=== PATIENT | male | born 1960 | race Two or more races ===

== ENCOUNTER 2017-12-11 06:24 | Inpatient (IN) | payer OTHER ==
[~2017-12-11] VITALS: Ht 182.9 cm; Wt 77.2 kg
[2017-12-11] MEDS ORDERED: PIPERACILLIN/TAZO/PMX 3.375GM 50 ML IVPB ONE (07:00)
[2017-12-11] MEDS ORDERED: VANCOMYCIN PER PHARMACY IV ONE (07:00)
[2017-12-11] MEDS ORDERED: VANCOMYCIN 1,600 MG in SODIUM CHLORIDE 0.9% 250 ML IV ONE (07:30)
[2017-12-11] MEDS ORDERED: PHARMACOKINETIC CONSULTATION MC ONE (07:30)
[2017-12-11] MEDS ORDERED: PIPERACILLIN/TAZO/PMX 3.375GM 50 ML ONE (07:37)
[2017-12-11 07:45] LABS: ALANINE AMINOTRANSFERASE 19 U/L (12-78); ALBUMIN 2.2 g/dL (3.4-5.0); ANION GAP 13 mmol/L (5-15); CALCIUM 8.7 mg/dL (8.5-10.1); CHLORIDE 92 mmol/L (98-107); CREATININE 0.84 mg/dL (0.7-1.3)
[2017-12-11 07:47] LABS: ALKALINE PHOSPHATASE 123 U/L (45-117); BILIRUBIN,TOTAL 0.5 mg/dL (0.2-1.0); TOTAL PROTEIN 8.8 g/dL (6.4-8.2)
[2017-12-11 07:51] LABS: MEAN CORPUSCULAR HEMOGLOBIN 29.2 pg (27.5-34.5); MEAN CORPUSCULAR HGB CONC 33.6 g/dL (33.2-36.2); MEAN CORPUSCULAR VOLUME 87.1 fL (81-97); PLATELET COUNT 280 x10^3/uL (130-400); RED BLOOD COUNT 4.47 x10^6/uL (4.38-5.82); RED CELL DISTRIBUTION WIDTH 13.5 % (9.4-14.8)
[2017-12-11 08:07] LABS: MD YES
[2017-12-11 08:09] LABS: <PLATELET ESTIMATE> ADEQUATE; <PLT MORPHOLOGY> NORMAL PLT MORPH; <RBC MORPHOLOGY> NORMAL; BAND#(MANUAL) 0.54 x10^3/uL; BANDS%(MANUAL) 3 % (0-7); LYMPH#(MANUAL) 1.07 x10^3/uL (1-3.4); LYMPHS% (MANUAL) 6 % (22-44); MONOS% (MANUAL) 5 % (2-9); SEG#(MANUAL) 15.39 x10^3/uL (1.8-6.8); SEGS% (MANUAL) 86 % (42-75)
[2017-12-11] MEDS ORDERED: DIPH,PERTUSS(ACELL),TET VAC/PF 0.5 ML IM-VACC ONE ×3 (08:30→09:36)
[2017-12-11] MEDS ORDERED: ONDANSETRON 2MG/ML, 2ML IVPush PRN (09:30)
[2017-12-11] MEDS ORDERED: BISACODYL 10 MG SUPP PR PRN (09:30)
[2017-12-11] MEDS: NICOTINE 14MG/24 HR PATCH.TD24 TD SCH (09:30)
[2017-12-11] MEDS ORDERED: VANCOMYCIN PER PHARMACY MC PRN (09:30)
[2017-12-11] MEDS ORDERED: ONDANSETRON ODT 4 MG PO PRN (09:30)
[2017-12-11] MEDS ORDERED: PIPERACILLIN/TAZO/PMX 3.375GM 50 ML IV SCH (09:30)
[2017-12-11 09:59] LABS: INTERNATIONAL NORMALIZED RATIO 1.01 (0.93-1.1); PROTHROMBIN TIME 10.5 Seconds (9.6-11.5)
[2017-12-11 10:11] LABS: HEMOGLOBIN A1C 12.9 % (4.2-6.3)
[2017-12-11] MEDS: SODIUM CHLORIDE 0.9% 1,000 ML IV SCH ×2 (11:26→22:21)
[2017-12-11] MEDS ORDERED: PHARMACOKINETIC MONITORING MC PRN (11:30)
[2017-12-11] MEDS: CLINDAMYCIN PMX 600MG/50ML 50 ML IV SCH ×2 (11:45→17:27)
[2017-12-11] MEDS: PIPERACILLIN/TAZO/PMX 3.375GM 50 ML IV SCH ×2 (13:08→19:09)
[2017-12-11 13:12] VITALS: BP 132/74
[2017-12-11 14:19] VITALS: BP 135/78
[2017-12-11] MEDS: ACETAMINOPHEN 325 MG TABLET PO PRN (14:47)
[2017-12-11] MEDS: INSULIN LISPRO 100 UNITS/ML, PEN SQ-INSULIN SCH ×2 (16:39→22:21)
[2017-12-11 20:21] VITALS: BP 120/70
[2017-12-11] MEDS: morphine SULFATE 10 MG/ML, 1ML IVPush PRN (21:33)
[2017-12-11] MEDS: VANCOMYCIN 1,500 MG in SODIUM CHLORIDE 0.9% 250 ML IV SCH (21:40)
[2017-12-12] MEDS: CLINDAMYCIN PMX 600MG/50ML 50 ML IV SCH ×4 (00:40→18:07)
[2017-12-12 00:51] VITALS: BP 123/71
[2017-12-12] MEDS: PIPERACILLIN/TAZO/PMX 3.375GM 50 ML IV SCH ×4 (02:36→23:30)
[2017-12-12] MEDS: SODIUM CHLORIDE 0.9% 1,000 ML IV SCH (04:00)
[2017-12-12] MEDS: ACETAMINOPHEN 325 MG TABLET PO PRN (04:06)
[2017-12-12 04:22] VITALS: BP 115/72
[2017-12-12 05:37] LABS: MEAN CORPUSCULAR HEMOGLOBIN 30.2 pg (27.5-34.5); MEAN CORPUSCULAR HGB CONC 34.4 g/dL (33.2-36.2); MEAN CORPUSCULAR VOLUME 87.7 fL (81-97); MEAN PLATELET VOLUME 8.8 fL (7.4-10.4); PLATELET COUNT 274 x10^3/uL (130-400); RED BLOOD COUNT 3.81 x10^6/uL (4.38-5.82); RED CELL DISTRIBUTION WIDTH 13.7 % (9.4-14.8)
[2017-12-12 05:52] LABS: CHLORIDE 98 mmol/L (98-107)
[2017-12-12 05:58] LABS: ANION GAP 13 mmol/L (5-15); CALCIUM 7.9 mg/dL (8.5-10.1); CREATININE 0.87 mg/dL (0.7-1.3)
[2017-12-12 06:03] LABS: BASOPHILS # (AUTO) 0.02 x10^3/uL (0-0.1); BASOPHILS % (AUTO) 0 % (0-1); EOSINOPHILS # (AUTO) 0.04 x10^3/uL (0-0.4); EOSINOPHILS % (AUTO) 0 % (1-7); LYMPHOCYTES # (AUTO) 1.11 x10^3/uL (1-3.4); LYMPHOCYTES % (AUTO) 9 % (22-44); MD SCAN; MONOCYTES # (AUTO) 0.95 x10^3/uL (0.2-0.8); MONOCYTES % (AUTO) 7 % (2-9); NEUTROPHILS # (AUTO) 10.82 x10^3/uL (1.8-6.8); NEUTROPHILS % (AUTO) 84 % (42-75)
[2017-12-12 07:11] VITALS: BP 122/71
[2017-12-12] MEDS: INSULIN LISPRO 100 UNITS/ML, PEN SQ-INSULIN SCH ×4 (07:48→22:03)
[2017-12-12] MEDS: morphine SULFATE 10 MG/ML, 1ML IVPush PRN ×3 (08:35→21:43)
[2017-12-12] MEDS: VANCOMYCIN 1,500 MG in SODIUM CHLORIDE 0.9% 250 ML IV SCH ×2 (08:35→21:39)
[2017-12-12] MEDS: NICOTINE 14MG/24 HR PATCH.TD24 TD SCH (09:00)
[2017-12-12] MEDS ORDERED: POTASSIUM CHLORIDE 40 MEQ in SODIUM CHLORIDE 0.9% 1,000 ML IV SCH (09:01)
[2017-12-12 13:05] VITALS: BP 122/68
[2017-12-12] MEDS ORDERED: FENTANYL PF 250 MCG/5ML ONE (13:40)
[2017-12-12] MEDS ORDERED: MIDAZOLAM 1 MG/ML, 2ML ONE (13:40)
[2017-12-12] MEDS ORDERED: LABETALOL 5MG/ML, 20ML IV PRN (15:00)
[2017-12-12] MEDS ORDERED: FENTANYL PF 100 MCG/2ML IV PRN (15:00)
[2017-12-12] MEDS ORDERED: ONDANSETRON 2MG/ML, 2ML IV PRN (15:00)
[2017-12-12] MEDS ORDERED: HYDROmorphone 1 MG/ML, 1ML IV PRN (15:00)
[2017-12-12] MEDS ORDERED: PROMETHAZINE 25 MG/ML, 1ML IV PRN (15:00)
[2017-12-12] MEDS ORDERED: ACETAMINOPHEN 325 MG TABLET PO PRN (15:00)
[2017-12-12] MEDS ORDERED: MEPERIDINE/PF 25MG/0.5ML IVPush PRN (15:00)
[2017-12-12] MEDS ORDERED: OXYcodone 5 MG/5 ML ORAL.SOL UDC PO PRN (15:00)
[2017-12-12] MEDS ORDERED: PROPOFOL 10 MG/ML, 20ML ONE ×2 (15:00)
[2017-12-12] MEDS ORDERED: hydrALAzine 20 MG/ML, 1ML IV PRN (15:00)
[2017-12-12] MEDS ORDERED: METOCLOPRAMIDE 5 MG/ML, 2ML ONE (15:01)
[2017-12-12] MEDS ORDERED: ONDANSETRON 2MG/ML, 2ML ONE (15:01)
[2017-12-12] MEDS ORDERED: ROCURONIUM 10MG/ML,5ML ONE (15:01)
[2017-12-12] MEDS ORDERED: OXYcodone 5 MG/5 ML ORAL.SOL UDC ONE (15:48)
[2017-12-12] MEDS: NS + 40MEQ KCL 1,000 ML IV SCH (18:52)
[2017-12-12 20:58] VITALS: BP 119/72
[2017-12-13] MEDS: CLINDAMYCIN PMX 600MG/50ML 50 ML IV SCH ×4 (00:11→21:23)
[2017-12-13 00:21] VITALS: BP 113/73
[2017-12-13] MEDS: NS + 40MEQ KCL 1,000 ML IV SCH ×3 (01:00→21:22)
[2017-12-13] MEDS: ACETAMINOPHEN 325 MG TABLET PO PRN ×2 (02:02→22:22)
[2017-12-13 03:52] VITALS: BP 109/70
[2017-12-13] MEDS: PIPERACILLIN/TAZO/PMX 3.375GM 50 ML IV SCH ×3 (05:38→16:46)
[2017-12-13 05:55] LABS: ANION GAP 10 mmol/L (5-15); CALCIUM 7.7 mg/dL (8.5-10.1); CHLORIDE 101 mmol/L (98-107); CREATININE 1.14 mg/dL (0.7-1.3)
[2017-12-13 05:57] LABS: MEAN CORPUSCULAR HEMOGLOBIN 29.9 pg (27.5-34.5); MEAN CORPUSCULAR HGB CONC 33.6 g/dL (33.2-36.2); MEAN PLATELET VOLUME 8.7 fL (7.4-10.4); PLATELET COUNT 271 x10^3/uL (130-400); RED BLOOD COUNT 3.61 x10^6/uL (4.38-5.82); RED CELL DISTRIBUTION WIDTH 13.4 % (9.4-14.8)
[2017-12-13] MEDS: morphine SULFATE 10 MG/ML, 1ML IVPush PRN ×4 (05:58→21:23)
[2017-12-13 06:49] LABS: BASOPHILS # (AUTO) 0.04 x10^3/uL (0-0.1); BASOPHILS % (AUTO) 0 % (0-1); EOSINOPHILS # (AUTO) 0.04 x10^3/uL (0-0.4); EOSINOPHILS % (AUTO) 0 % (1-7); LYMPHOCYTES # (AUTO) 1.29 x10^3/uL (1-3.4); LYMPHOCYTES % (AUTO) 10 % (22-44); MD SCAN; MONOCYTES # (AUTO) 0.96 x10^3/uL (0.2-0.8); MONOCYTES % (AUTO) 8 % (2-9); NEUTROPHILS # (AUTO) 10.31 x10^3/uL (1.8-6.8); NEUTROPHILS % (AUTO) 82 % (42-75)
[2017-12-13 07:17] VITALS: BP 119/74
[2017-12-13] MEDS: INSULIN LISPRO 100 UNITS/ML, PEN SQ-INSULIN SCH ×4 (08:00→21:24)
[2017-12-13] MEDS: NICOTINE 14MG/24 HR PATCH.TD24 TD SCH (08:01)
[2017-12-13] MEDS: VANCOMYCIN 1,500 MG in SODIUM CHLORIDE 0.9% 250 ML IV SCH ×2 (08:01→22:43)
[2017-12-13 12:52] VITALS: BP 132/77
[2017-12-13] MEDS ORDERED: POTASSIUM CHLORIDE 20 MEQ TAB.ER.PRT PO ONE (14:30)
[2017-12-13 19:26] VITALS: BP 117/74
[2017-12-14] MEDS: PIPERACILLIN/TAZO/PMX 3.375GM 50 ML IV SCH ×4 (00:17→19:49)
[2017-12-14 01:45] VITALS: BP 120/76
[2017-12-14] MEDS: CLINDAMYCIN PMX 600MG/50ML 50 ML IV SCH ×4 (03:32→22:29)
[2017-12-14] MEDS: morphine SULFATE 10 MG/ML, 1ML IVPush PRN ×3 (03:39→19:49)
[2017-12-14 07:15] VITALS: BP 142/85
[2017-12-14] MEDS: INSULIN LISPRO 100 UNITS/ML, PEN SQ-INSULIN SCH ×4 (07:47→22:29)
[2017-12-14] MEDS: NICOTINE 14MG/24 HR PATCH.TD24 TD SCH (09:30)
[2017-12-14] MEDS: INSULIN GLARGINE 100 UNITS/ML, PEN SQ-INSULIN SCH (09:50)
[2017-12-14] MEDS: VANCOMYCIN 1,500 MG in SODIUM CHLORIDE 0.9% 250 ML IV SCH ×2 (11:26→23:37)
[2017-12-14 14:00] VITALS: BP 142/86
[2017-12-14] MEDS: ACETAMINOPHEN 325 MG TABLET PO PRN ×2 (14:50→22:29)
[2017-12-14 20:24] VITALS: BP 113/70
[2017-12-15 02:11] VITALS: BP 144/84
[2017-12-15] MEDS: PIPERACILLIN/TAZO/PMX 3.375GM 50 ML IV SCH ×4 (02:47→20:02)
[2017-12-15] MEDS: ACETAMINOPHEN 325 MG TABLET PO PRN ×3 (02:51→14:26)
[2017-12-15 02:56] VITALS: BP 132/82
[2017-12-15] MEDS: CLINDAMYCIN PMX 600MG/50ML 50 ML IV SCH ×4 (04:36→22:19)
[2017-12-15 05:40] LABS: BASOPHILS # (AUTO) 0.07 x10^3/uL (0-0.1); BASOPHILS % (AUTO) 1 % (0-1); EOSINOPHILS # (AUTO) 0.14 x10^3/uL (0-0.4); EOSINOPHILS % (AUTO) 2 % (1-7); LYMPHOCYTES # (AUTO) 1.55 x10^3/uL (1-3.4); LYMPHOCYTES % (AUTO) 16 % (22-44); MD NO; MEAN CORPUSCULAR VOLUME 88.3 fL (81-97); MEAN PLATELET VOLUME 8.7 fL (7.4-10.4); MONOCYTES # (AUTO) 0.62 x10^3/uL (0.2-0.8); MONOCYTES % (AUTO) 6 % (2-9); NEUTROPHILS # (AUTO) 7.23 x10^3/uL (1.8-6.8); NEUTROPHILS % (AUTO) 75 % (42-75); PLATELET COUNT 365 x10^3/uL (130-400); RED BLOOD COUNT 3.53 x10^6/uL (4.38-5.82); RED CELL DISTRIBUTION WIDTH 13.6 % (9.4-14.8)
[2017-12-15 05:51] LABS: ALBUMIN 1.6 g/dL (3.4-5.0); ANION GAP 8 mmol/L (5-15); CALCIUM 8.3 mg/dL (8.5-10.1); CHLORIDE 107 mmol/L (98-107); CREATININE 1.01 mg/dL (0.7-1.3)
[2017-12-15 05:53] LABS: VANCOMYCIN,RANDOM 32.1 mcg/mL
[2017-12-15 06:56] VITALS: BP 129/82
[2017-12-15] MEDS: NICOTINE 14MG/24 HR PATCH.TD24 TD SCH (07:36)
[2017-12-15] MEDS: INSULIN GLARGINE 100 UNITS/ML, PEN SQ-INSULIN SCH (07:43)
[2017-12-15] MEDS: INSULIN LISPRO 100 UNITS/ML, PEN SQ-INSULIN SCH ×4 (07:44→20:24)
[2017-12-15] MEDS: morphine SULFATE 10 MG/ML, 1ML IVPush PRN ×3 (07:52→20:24)
[2017-12-15 12:57] VITALS: BP 126/80
[2017-12-15 19:38] VITALS: BP 128/79
[2017-12-15] MEDS ORDERED: MORPHINE SULFATE 4 MG/ML, 1ML ONE (20:16)
[2017-12-16 02:22] VITALS: BP 145/82
[2017-12-16] MEDS: morphine SULFATE 10 MG/ML, 1ML IVPush PRN ×3 (02:33→21:18)
[2017-12-16] MEDS: PIPERACILLIN/TAZO/PMX 3.375GM 50 ML IV SCH (02:50)
[2017-12-16] MEDS: CLINDAMYCIN PMX 600MG/50ML 50 ML IV SCH (05:14)
[2017-12-16 05:40] LABS: ALBUMIN 1.6 g/dL (3.4-5.0); ANION GAP 7 mmol/L (5-15); CHLORIDE 108 mmol/L (98-107); CREATININE 1.12 mg/dL (0.7-1.3)
[2017-12-16 05:42] LABS: BASOPHILS # (AUTO) 0.03 x10^3/uL (0-0.1); BASOPHILS % (AUTO) 0 % (0-1); EOSINOPHILS # (AUTO) 0.19 x10^3/uL (0-0.4); EOSINOPHILS % (AUTO) 2 % (1-7); LYMPHOCYTES # (AUTO) 1.73 x10^3/uL (1-3.4); LYMPHOCYTES % (AUTO) 18 % (22-44); MD NO; MEAN CORPUSCULAR HEMOGLOBIN 29.5 pg (27.5-34.5); MEAN CORPUSCULAR HGB CONC 33.4 g/dL (33.2-36.2); MEAN CORPUSCULAR VOLUME 88.3 fL (81-97); MEAN PLATELET VOLUME 8.1 fL (7.4-10.4); MONOCYTES # (AUTO) 0.72 x10^3/uL (0.2-0.8); MONOCYTES % (AUTO) 7 % (2-9); NEUTROPHILS # (AUTO) 7.24 x10^3/uL (1.8-6.8); NEUTROPHILS % (AUTO) 73 % (42-75); PLATELET COUNT 405 x10^3/uL (130-400); RED BLOOD COUNT 3.53 x10^6/uL (4.38-5.82); RED CELL DISTRIBUTION WIDTH 13.8 % (9.4-14.8)
[2017-12-16 05:51] LABS: VANCOMYCIN,RANDOM 12.4 mcg/mL
[2017-12-16] MEDS ORDERED: CEFAZOLIN PMX 2GM/50ML 50 ML IVPB SCH (07:00)
[2017-12-16] MEDS ORDERED: CEFAZOLIN 1,000 MG in SODIUM CHLORIDE 0.9% 50 ML IV SCH (07:00)
[2017-12-16] MEDS: INSULIN LISPRO 100 UNITS/ML, PEN SQ-INSULIN SCH ×4 (07:46→21:35)
[2017-12-16] MEDS: INSULIN GLARGINE 100 UNITS/ML, PEN SQ-INSULIN SCH (07:47)
[2017-12-16] MEDS: ACETAMINOPHEN 325 MG TABLET PO PRN ×3 (07:52→21:35)
[2017-12-16] MEDS: NICOTINE 14MG/24 HR PATCH.TD24 TD SCH (07:53)
[2017-12-16] MEDS: CEFAZOLIN 2,000 MG in SODIUM CHLORIDE 0.9% 50 ML IV SCH ×2 (07:53→16:08)
[2017-12-16 08:17] VITALS: BP 145/80
[2017-12-16 12:42] VITALS: BP 140/88
[2017-12-16 20:03] VITALS: BP 146/77
[2017-12-17] MEDS: CEFAZOLIN 2,000 MG in SODIUM CHLORIDE 0.9% 50 ML IV SCH ×3 (00:38→17:01)
[2017-12-17 02:17] VITALS: BP 159/88
[2017-12-17] MEDS: INSULIN LISPRO 100 UNITS/ML, PEN SQ-INSULIN SCH ×4 (07:00→21:00)
[2017-12-17 07:19] VITALS: BP 151/76
[2017-12-17] MEDS: INSULIN GLARGINE 100 UNITS/ML, PEN SQ-INSULIN SCH (08:53)
[2017-12-17] MEDS: NICOTINE 14MG/24 HR PATCH.TD24 TD SCH (08:53)
[2017-12-17] MEDS: ACETAMINOPHEN 325 MG TABLET PO PRN ×2 (10:53→18:12)
[2017-12-17 12:31] VITALS: BP 158/84
[2017-12-17] MEDS: morphine SULFATE 10 MG/ML, 1ML IVPush PRN (18:21)
[2017-12-17 19:24] VITALS: BP 150/89
[2017-12-18] MEDS: CEFAZOLIN 2,000 MG in SODIUM CHLORIDE 0.9% 50 ML IV SCH ×3 (01:38→16:27)
[2017-12-18 02:41] VITALS: BP 151/79
[2017-12-18 05:37] LABS: HCT (SEDRATE) 34.4 % (39.2-51.8)
[2017-12-18 07:35] VITALS: BP 159/90
[2017-12-18] MEDS: INSULIN LISPRO 100 UNITS/ML, PEN SQ-INSULIN SCH ×4 (07:53→21:44)
[2017-12-18] MEDS: CARVEDILOL 6.25 MG TABLET PO SCH ×2 (09:11→17:21)
[2017-12-18] MEDS: ACETAMINOPHEN 325 MG TABLET PO SCH ×4 (09:11→22:40)
[2017-12-18] MEDS: NICOTINE 14MG/24 HR PATCH.TD24 TD SCH (09:13)
[2017-12-18] MEDS: INSULIN GLARGINE 100 UNITS/ML, PEN SQ-INSULIN SCH (09:13)
[2017-12-18] MEDS: morphine SULFATE 10 MG/ML, 1ML IVPush PRN ×2 (11:39→22:40)
[2017-12-18 13:47] VITALS: BP 124/76
[2017-12-18 19:08] VITALS: BP 148/82
[2017-12-19] MEDS: CEFAZOLIN 2,000 MG in SODIUM CHLORIDE 0.9% 50 ML IV SCH ×3 (00:19→16:02)
[2017-12-19 01:21] VITALS: BP 149/80
[2017-12-19] MEDS: ACETAMINOPHEN 325 MG TABLET PO SCH ×4 (04:30→22:30)
[2017-12-19 04:50] LABS: FOLATE LEVEL 9.6 ng/mL (3.1-17.5)
[2017-12-19] MEDS: CARVEDILOL 6.25 MG TABLET PO SCH (06:37)
[2017-12-19] MEDS: INSULIN LISPRO 100 UNITS/ML, PEN SQ-INSULIN SCH ×4 (07:00→20:20)
[2017-12-19] MEDS: INSULIN GLARGINE 100 UNITS/ML, PEN SQ-INSULIN SCH (08:42)
[2017-12-19] MEDS: NICOTINE 14MG/24 HR PATCH.TD24 TD SCH (08:43)
[2017-12-19 08:54] VITALS: BP 142/83
[2017-12-19 12:02] VITALS: BP 153/88
[2017-12-19] MEDS: ENOXAPARIN 40 MG/0.4 ML SQ SCH (13:40)
[2017-12-19 16:06] LABS: MICROSCOPIC NOT IND
[2017-12-19 16:08] LABS: CULTURE INDICATED? NO
[2017-12-19] MEDS: CEFAZOLIN 2,000 MG in DEXTROSE 5% 50 ML IV SCH (17:25)
[2017-12-19] MEDS: CARVEDILOL 3.125 MG TABLET PO SCH (18:20)
[2017-12-19] MEDS: morphine SULFATE 10 MG/ML, 1ML IVPush PRN (18:24)
[2017-12-19 19:24] VITALS: BP 132/74
[2017-12-19] MEDS: LISINOPRIL 10 MG TABLET PO SCH (20:22)
[2017-12-20 00:56] VITALS: BP 154/85
[2017-12-20] MEDS ORDERED: CEFAZOLIN 2,000 MG in SODIUM CHLORIDE 0.9% 50 ML IV SCH (01:00)
[2017-12-20] MEDS: CEFAZOLIN 2,000 MG in DEXTROSE 5% 50 ML IV SCH (01:23)
[2017-12-20 05:54] VITALS: BP 146/82
[2017-12-20] MEDS: ACETAMINOPHEN 325 MG TABLET PO SCH ×4 (05:56→22:59)
[2017-12-20] MEDS: CARVEDILOL 3.125 MG TABLET PO SCH ×2 (05:56→18:09)
[2017-12-20 07:00] VITALS: BP 129/77
[2017-12-20] MEDS: LISINOPRIL 10 MG TABLET PO SCH ×2 (07:59→20:16)
[2017-12-20] MEDS: INSULIN GLARGINE 100 UNITS/ML, PEN SQ-INSULIN SCH (08:00)
[2017-12-20] MEDS: INSULIN LISPRO 100 UNITS/ML, PEN SQ-INSULIN SCH ×4 (08:01→20:24)
[2017-12-20] MEDS: CEFAZOLIN 2,000 MG in SODIUM CHLORIDE 0.9% 50 ML IV SCH ×2 (08:03→16:38)
[2017-12-20] MEDS: NICOTINE 14MG/24 HR PATCH.TD24 TD SCH (08:04)
[2017-12-20] MEDS: morphine SULFATE 10 MG/ML, 1ML IVPush PRN (09:27)
[2017-12-20] MEDS: ENOXAPARIN 40 MG/0.4 ML SQ SCH (12:16)
[2017-12-20 13:02] VITALS: BP 116/70
[2017-12-20 18:08] VITALS: BP 123/82
[2017-12-20 18:28] VITALS: BP 124/73
[2017-12-21 00:31] VITALS: BP 130/78
[2017-12-21] MEDS: CEFAZOLIN 2,000 MG in SODIUM CHLORIDE 0.9% 50 ML IV SCH ×3 (00:38→16:56)
[2017-12-21 05:28] VITALS: BP 143/82
[2017-12-21] MEDS: CARVEDILOL 3.125 MG TABLET PO SCH (05:29)
[2017-12-21] MEDS: ACETAMINOPHEN 325 MG TABLET PO SCH ×4 (05:29→22:41)
[2017-12-21] MEDS: INSULIN LISPRO 100 UNITS/ML, PEN SQ-INSULIN SCH ×4 (05:32→21:04)
[2017-12-21 07:36] VITALS: BP 124/78
[2017-12-21] MEDS: LISINOPRIL 10 MG TABLET PO SCH (08:48)
[2017-12-21] MEDS: INSULIN GLARGINE 100 UNITS/ML, PEN SQ-INSULIN SCH (08:50)
[2017-12-21] MEDS: NICOTINE 14MG/24 HR PATCH.TD24 TD SCH (09:30)
[2017-12-21 11:46] LABS: HCT (SEDRATE) 35.6 % (39.2-51.8)
[2017-12-21 11:58] LABS: ALBUMIN 2.4 g/dL (3.4-5.0); ANION GAP 5 mmol/L (5-15); CALCIUM 9.2 mg/dL (8.5-10.1); CHLORIDE 104 mmol/L (98-107)
[2017-12-21 12:07] LABS: ALANINE AMINOTRANSFERASE 18 U/L (12-78); ALKALINE PHOSPHATASE 87 U/L (45-117); BILIRUBIN,TOTAL 0.2 mg/dL (0.2-1.0); CREATININE 1.13 mg/dL (0.7-1.3); TOTAL PROTEIN 8.9 g/dL (6.4-8.2)
[2017-12-21] MEDS: ENOXAPARIN 40 MG/0.4 ML SQ SCH (12:08)
[2017-12-21 13:00] VITALS: BP 136/80
[2017-12-21] MEDS: morphine SULFATE 10 MG/ML, 1ML IVPush PRN (19:23)
[2017-12-21 20:00] VITALS: BP 142/83
[2017-12-21] MEDS ORDERED: LISINOPRIL 10 MG TABLET PO SCH (21:00)
[2017-12-21] MEDS: DOCUSATE 100 MG CAPSULE PO PRN (22:41)
[2017-12-21] MEDS: POLYETHYLENE GLYCOL 17 GM PACKET PO PRN (22:41)
[2017-12-22] MEDS: CEFAZOLIN 2,000 MG in SODIUM CHLORIDE 0.9% 50 ML IV SCH ×3 (00:52→16:51)
[2017-12-22 01:20] VITALS: BP 146/83
[2017-12-22] MEDS: ACETAMINOPHEN 325 MG TABLET PO SCH ×4 (04:43→23:19)
[2017-12-22 04:50] LABS: HCT (SEDRATE) 32.4 % (39.2-51.8)
[2017-12-22 04:53] LABS: ALANINE AMINOTRANSFERASE 15 U/L (12-78); ALBUMIN 2.4 g/dL (3.4-5.0); ANION GAP 9 mmol/L (5-15); CALCIUM 8.7 mg/dL (8.5-10.1); CHLORIDE 103 mmol/L (98-107)
[2017-12-22 05:02] LABS: ALKALINE PHOSPHATASE 81 U/L (45-117); BILIRUBIN,TOTAL 0.2 mg/dL (0.2-1.0); TOTAL PROTEIN 8.4 g/dL (6.4-8.2)
[2017-12-22] MEDS: INSULIN LISPRO 100 UNITS/ML, PEN SQ-INSULIN SCH ×4 (07:00→21:00)
[2017-12-22 07:21] VITALS: BP 125/78
[2017-12-22 07:46] LABS: BASOPHILS # (AUTO) 0.04 x10^3/uL (0-0.1); BASOPHILS % (AUTO) 1 % (0-1); EOSINOPHILS # (AUTO) 0.13 x10^3/uL (0-0.4); EOSINOPHILS % (AUTO) 2 % (1-7); LYMPHOCYTES # (AUTO) 2.03 x10^3/uL (1-3.4); LYMPHOCYTES % (AUTO) 23 % (22-44); MD NO; MEAN CORPUSCULAR HEMOGLOBIN 30.3 pg (27.5-34.5); MEAN CORPUSCULAR HGB CONC 34.6 g/dL (33.2-36.2); MEAN CORPUSCULAR VOLUME 87.7 fL (81-97); MEAN PLATELET VOLUME 7.1 fL (7.4-10.4); MONOCYTES # (AUTO) 0.46 x10^3/uL (0.2-0.8); MONOCYTES % (AUTO) 5 % (2-9); NEUTROPHILS % (AUTO) 70 % (42-75); PLATELET COUNT 537 x10^3/uL (130-400); RED BLOOD COUNT 3.93 x10^6/uL (4.38-5.82); RED CELL DISTRIBUTION WIDTH 13.8 % (9.4-14.8)
[2017-12-22] MEDS: INSULIN GLARGINE 100 UNITS/ML, PEN SQ-INSULIN SCH (07:55)
[2017-12-22] MEDS: LISINOPRIL 20 MG TABLET PO SCH (07:56)
[2017-12-22] MEDS: NICOTINE 14MG/24 HR PATCH.TD24 TD SCH (08:54)
[2017-12-22] MEDS: morphine SULFATE 10 MG/ML, 1ML IVPush PRN ×2 (10:07→18:32)
[2017-12-22] MEDS: ENOXAPARIN 40 MG/0.4 ML SQ SCH (11:54)
[2017-12-22 13:08] VITALS: BP 123/77
[2017-12-22 20:17] VITALS: BP 119/73
[2017-12-23] MEDS: CEFAZOLIN 2,000 MG in SODIUM CHLORIDE 0.9% 50 ML IV SCH ×3 (00:54→16:02)
[2017-12-23 02:09] VITALS: BP 123/70
[2017-12-23] MEDS: ACETAMINOPHEN 325 MG TABLET PO SCH ×4 (04:54→22:55)
[2017-12-23] MEDS: INSULIN LISPRO 100 UNITS/ML, PEN SQ-INSULIN SCH ×4 (07:00→20:30)
[2017-12-23 07:28] VITALS: BP 114/74
[2017-12-23] MEDS: NICOTINE 14MG/24 HR PATCH.TD24 TD SCH (08:32)
[2017-12-23] MEDS: LISINOPRIL 20 MG TABLET PO SCH (08:34)
[2017-12-23] MEDS: INSULIN GLARGINE 100 UNITS/ML, PEN SQ-INSULIN SCH (08:34)
[2017-12-23] MEDS: ENOXAPARIN 40 MG/0.4 ML SQ SCH (11:59)
[2017-12-23 12:29] VITALS: BP 126/79
[2017-12-23] MEDS: POLYETHYLENE GLYCOL 17 GM PACKET PO PRN (16:02)
[2017-12-23] MEDS: DOCUSATE 100 MG CAPSULE PO PRN (16:02)
[2017-12-23 19:20] VITALS: BP 131/75
[2017-12-24] MEDS: CEFAZOLIN 2,000 MG in SODIUM CHLORIDE 0.9% 50 ML IV SCH ×3 (00:41→16:40)
[2017-12-24 03:58] VITALS: BP 132/84
[2017-12-24] MEDS: ACETAMINOPHEN 325 MG TABLET PO SCH ×4 (05:13→23:10)
[2017-12-24] MEDS: POLYETHYLENE GLYCOL 17 GM PACKET PO PRN (06:03)
[2017-12-24] MEDS: INSULIN LISPRO 100 UNITS/ML, PEN SQ-INSULIN SCH ×4 (07:16→20:30)
[2017-12-24 09:15] VITALS: BP 128/81
[2017-12-24] MEDS: LISINOPRIL 20 MG TABLET PO SCH (09:56)
[2017-12-24] MEDS: NICOTINE 14MG/24 HR PATCH.TD24 TD SCH (09:56)
[2017-12-24] MEDS: INSULIN GLARGINE 100 UNITS/ML, PEN SQ-INSULIN SCH (09:57)
[2017-12-24] MEDS: ENOXAPARIN 40 MG/0.4 ML SQ SCH (11:48)
[2017-12-24] MEDS: morphine SULFATE 10 MG/ML, 1ML IVPush PRN (13:44)
[2017-12-24 15:20] VITALS: BP 116/68
[2017-12-24 18:34] VITALS: BP 103/62
[2017-12-25] MEDS: CEFAZOLIN 2,000 MG in SODIUM CHLORIDE 0.9% 50 ML IV SCH ×3 (00:53→16:18)
[2017-12-25 02:21] VITALS: BP 112/70
[2017-12-25] MEDS: INSULIN LISPRO 100 UNITS/ML, PEN SQ-INSULIN SCH ×4 (05:44→20:30)
[2017-12-25] MEDS: ACETAMINOPHEN 325 MG TABLET PO SCH ×4 (05:45→23:57)
[2017-12-25 07:14] VITALS: BP 113/73
[2017-12-25] MEDS: LISINOPRIL 20 MG TABLET PO SCH (08:48)
[2017-12-25] MEDS: NICOTINE 14MG/24 HR PATCH.TD24 TD SCH (08:48)
[2017-12-25] MEDS: INSULIN GLARGINE 100 UNITS/ML, PEN SQ-INSULIN SCH (08:55)
[2017-12-25] MEDS: ENOXAPARIN 40 MG/0.4 ML SQ SCH (11:39)
[2017-12-25 12:54] VITALS: BP 97/62
[2017-12-25 19:44] VITALS: BP 121/78
[2017-12-26] MEDS: CEFAZOLIN 2,000 MG in SODIUM CHLORIDE 0.9% 50 ML IV SCH ×3 (01:14→16:28)
[2017-12-26 01:59] VITALS: BP 133/84
[2017-12-26] MEDS: INSULIN LISPRO 100 UNITS/ML, PEN SQ-INSULIN SCH ×4 (05:42→21:07)
[2017-12-26] MEDS: ACETAMINOPHEN 325 MG TABLET PO SCH ×3 (05:42→16:29)
[2017-12-26 07:32] VITALS: BP 109/72
[2017-12-26] MEDS: LISINOPRIL 20 MG TABLET PO SCH (09:02)
[2017-12-26] MEDS: INSULIN GLARGINE 100 UNITS/ML, PEN SQ-INSULIN SCH (09:03)
[2017-12-26] MEDS: NICOTINE 14MG/24 HR PATCH.TD24 TD SCH (09:07)
[2017-12-26 10:29] LABS: CREATININE 1.06 mg/dL (0.7-1.3)
[2017-12-26] MEDS: morphine SULFATE 10 MG/ML, 1ML IVPush PRN (10:52)
[2017-12-26] MEDS: ENOXAPARIN 40 MG/0.4 ML SQ SCH (11:56)
[2017-12-26 13:16] VITALS: BP 112/72
[2017-12-26 20:01] VITALS: BP 95/60
[2017-12-27] MEDS: CEFAZOLIN 2,000 MG in SODIUM CHLORIDE 0.9% 50 ML IV SCH ×3 (01:03→16:22)
[2017-12-27] MEDS: ACETAMINOPHEN 325 MG TABLET PO SCH ×5 (01:03→22:48)
[2017-12-27 01:48] VITALS: BP 102/64
[2017-12-27] MEDS: INSULIN LISPRO 100 UNITS/ML, PEN SQ-INSULIN SCH ×4 (05:41→21:19)
[2017-12-27 06:54] VITALS: BP 118/74
[2017-12-27] MEDS: INSULIN GLARGINE 100 UNITS/ML, PEN SQ-INSULIN SCH (09:06)
[2017-12-27] MEDS: LISINOPRIL 20 MG TABLET PO SCH (09:06)
[2017-12-27] MEDS: NICOTINE 14MG/24 HR PATCH.TD24 TD SCH (09:09)
[2017-12-27] MEDS: ENOXAPARIN 40 MG/0.4 ML SQ SCH (11:48)
[2017-12-27 12:40] VITALS: BP 103/70
[2017-12-27 20:13] VITALS: BP 110/67
[2017-12-28] MEDS: CEFAZOLIN 2,000 MG in SODIUM CHLORIDE 0.9% 50 ML IV SCH ×2 (00:34→09:29)
[2017-12-28 01:36] VITALS: BP 102/67
[2017-12-28] MEDS: ACETAMINOPHEN 325 MG TABLET PO SCH ×4 (05:27→23:58)
[2017-12-28 07:02] VITALS: BP 96/63
[2017-12-28 09:26] VITALS: BP 102/65
[2017-12-28] MEDS: INSULIN GLARGINE 100 UNITS/ML, PEN SQ-INSULIN SCH (09:28)
[2017-12-28] MEDS: INSULIN LISPRO 100 UNITS/ML, PEN SQ-INSULIN SCH ×4 (09:28→21:00)
[2017-12-28] MEDS: LISINOPRIL 20 MG TABLET PO SCH (09:29)
[2017-12-28] MEDS: NICOTINE 14MG/24 HR PATCH.TD24 TD SCH (09:30)
[2017-12-28] MEDS: ENOXAPARIN 40 MG/0.4 ML SQ SCH (12:15)
[2017-12-28 13:46] VITALS: BP 108/66
[2017-12-28] MEDS ORDERED: CEFAZOLIN 2,000 MG in SODIUM CHLORIDE 0.9% 50 ML IV SCH (16:00)
[2017-12-28] MEDS: morphine SULFATE 10 MG/ML, 1ML IVPush PRN (16:06)
[2017-12-28] MEDS: CEFAZOLIN PMX 2GM/50ML 50 ML IVPB SCH (17:25)
[2017-12-28 19:32] VITALS: BP 99/60
[2017-12-29 01:16] VITALS: BP 98/59
[2017-12-29] MEDS: CEFAZOLIN PMX 2GM/50ML 50 ML IVPB SCH ×3 (01:29→17:46)
[2017-12-29 03:20] LABS: BASOPHILS # (AUTO) 0.07 x10^3/uL (0-0.1); BASOPHILS % (AUTO) 1 % (0-1); EOSINOPHILS # (AUTO) 0.16 x10^3/uL (0-0.4); EOSINOPHILS % (AUTO) 3 % (1-7); HCT (SEDRATE) 33.2 % (39.2-51.8); LYMPHOCYTES # (AUTO) 2.07 x10^3/uL (1-3.4); LYMPHOCYTES % (AUTO) 37 % (22-44); MD NO; MEAN CORPUSCULAR HEMOGLOBIN 28.9 pg (27.5-34.5); MEAN CORPUSCULAR HGB CONC 33.2 g/dL (33.2-36.2); MEAN PLATELET VOLUME 7.3 fL (7.4-10.4); MONOCYTES # (AUTO) 0.36 x10^3/uL (0.2-0.8); MONOCYTES % (AUTO) 6 % (2-9); NEUTROPHILS # (AUTO) 3.02 x10^3/uL (1.8-6.8); NEUTROPHILS % (AUTO) 53 % (42-75); PLATELET COUNT 303 x10^3/uL (130-400); RED BLOOD COUNT 3.79 x10^6/uL (4.38-5.82); RED CELL DISTRIBUTION WIDTH 13.7 % (9.4-14.8)
[2017-12-29 03:33] LABS: ALANINE AMINOTRANSFERASE 7 U/L (12-78); ALBUMIN 2.7 g/dL (3.4-5.0); ANION GAP 6 mmol/L (5-15); CALCIUM 9.2 mg/dL (8.5-10.1); CHLORIDE 105 mmol/L (98-107); CREATININE 1.02 mg/dL (0.7-1.3)
[2017-12-29 03:40] LABS: ALKALINE PHOSPHATASE 72 U/L (45-117); BILIRUBIN,TOTAL 0.2 mg/dL (0.2-1.0); TOTAL PROTEIN 8.3 g/dL (6.4-8.2)
[2017-12-29] MEDS: ACETAMINOPHEN 325 MG TABLET PO SCH ×3 (06:28→17:46)
[2017-12-29] MEDS: INSULIN LISPRO 100 UNITS/ML, PEN SQ-INSULIN SCH ×4 (07:37→20:39)
[2017-12-29 07:50] VITALS: BP 103/70
[2017-12-29] MEDS: NICOTINE 14MG/24 HR PATCH.TD24 TD SCH (09:30)
[2017-12-29] MEDS: LISINOPRIL 20 MG TABLET PO SCH (09:51)
[2017-12-29] MEDS: INSULIN GLARGINE 100 UNITS/ML, PEN SQ-INSULIN SCH (09:52)
[2017-12-29] MEDS: morphine SULFATE 10 MG/ML, 1ML IVPush PRN ×2 (11:46→20:38)
[2017-12-29] MEDS: ENOXAPARIN 40 MG/0.4 ML SQ SCH (13:23)
[2017-12-29 15:04] VITALS: BP 95/63
[2017-12-29 19:34] VITALS: BP 93/60
[2017-12-30] MEDS: CEFAZOLIN PMX 2GM/50ML 50 ML IVPB SCH ×3 (01:17→17:46)
[2017-12-30] MEDS: ACETAMINOPHEN 325 MG TABLET PO SCH ×4 (01:17→19:28)
[2017-12-30 01:29] VITALS: BP 94/58
[2017-12-30] MEDS: INSULIN LISPRO 100 UNITS/ML, PEN SQ-INSULIN SCH ×4 (07:00→20:53)
[2017-12-30 07:09] VITALS: BP 97/63
[2017-12-30] MEDS: LISINOPRIL 20 MG TABLET PO SCH (09:00)
[2017-12-30] MEDS: NICOTINE 14MG/24 HR PATCH.TD24 TD SCH (09:30)
[2017-12-30] MEDS: INSULIN GLARGINE 100 UNITS/ML, PEN SQ-INSULIN SCH (09:57)
[2017-12-30] MEDS: ENOXAPARIN 40 MG/0.4 ML SQ SCH (13:03)
[2017-12-30 13:17] VITALS: BP 121/84
[2017-12-30 19:00] VITALS: BP 113/67
[2017-12-31] MEDS: CEFAZOLIN PMX 2GM/50ML 50 ML IVPB SCH ×3 (01:26→17:51)
[2017-12-31] MEDS: ACETAMINOPHEN 325 MG TABLET PO SCH ×4 (01:30→20:03)
[2017-12-31 01:40] VITALS: BP 110/68
[2017-12-31 06:54] VITALS: BP 95/65
[2017-12-31] MEDS: INSULIN LISPRO 100 UNITS/ML, PEN SQ-INSULIN SCH ×4 (07:00→20:04)
[2017-12-31] MEDS: LISINOPRIL 20 MG TABLET PO SCH (08:37)
[2017-12-31] MEDS: INSULIN GLARGINE 100 UNITS/ML, PEN SQ-INSULIN SCH (08:40)
[2017-12-31] MEDS: NICOTINE 14MG/24 HR PATCH.TD24 TD SCH (08:58)
[2017-12-31 12:31] VITALS: BP 102/58
[2017-12-31] MEDS: ENOXAPARIN 40 MG/0.4 ML SQ SCH (13:30)
[2017-12-31] MEDS: morphine SULFATE 10 MG/ML, 1ML IVPush PRN (14:24)
[2017-12-31 20:53] VITALS: BP 98/63
[2018-01-01] MEDS: ACETAMINOPHEN 325 MG TABLET PO SCH ×4 (01:38→19:36)
[2018-01-01] MEDS: CEFAZOLIN PMX 2GM/50ML 50 ML IVPB SCH ×3 (01:39→16:58)
[2018-01-01 03:32] VITALS: BP 124/79
[2018-01-01] MEDS: INSULIN LISPRO 100 UNITS/ML, PEN SQ-INSULIN SCH ×4 (07:00→20:02)
[2018-01-01 07:39] VITALS: BP 120/75
[2018-01-01] MEDS: LISINOPRIL 20 MG TABLET PO SCH (08:37)
[2018-01-01] MEDS: INSULIN GLARGINE 100 UNITS/ML, PEN SQ-INSULIN SCH (08:38)
[2018-01-01] MEDS: NICOTINE 14MG/24 HR PATCH.TD24 TD SCH (09:30)
[2018-01-01 13:41] VITALS: BP 106/69
[2018-01-01] MEDS: ENOXAPARIN 40 MG/0.4 ML SQ SCH (13:41)
[2018-01-01] MEDS: morphine SULFATE 10 MG/ML, 1ML IVPush PRN (19:53)
[2018-01-01 20:40] VITALS: BP 91/57
[2018-01-02] MEDS: CEFAZOLIN PMX 2GM/50ML 50 ML IVPB SCH ×3 (01:49→17:42)
[2018-01-02] MEDS: ACETAMINOPHEN 325 MG TABLET PO SCH ×4 (01:49→20:30)
[2018-01-02 02:09] VITALS: BP 101/67
[2018-01-02] MEDS: INSULIN LISPRO 100 UNITS/ML, PEN SQ-INSULIN SCH ×4 (07:00→21:00)
[2018-01-02 07:31] VITALS: BP 91/61
[2018-01-02 07:52] VITALS: BP 98/62
[2018-01-02] MEDS: LISINOPRIL 20 MG TABLET PO SCH (07:54)
[2018-01-02] MEDS: NICOTINE 14MG/24 HR PATCH.TD24 TD SCH (07:56)
[2018-01-02] MEDS: INSULIN GLARGINE 100 UNITS/ML, PEN SQ-INSULIN SCH (07:56)
[2018-01-02] MEDS: morphine SULFATE 10 MG/ML, 1ML IVPush PRN (10:50)
[2018-01-02 12:47] VITALS: BP 92/58
[2018-01-02] MEDS: ENOXAPARIN 40 MG/0.4 ML SQ SCH (14:37)
[2018-01-02] MEDS ORDERED: INSU100I11 SQ-INSULIN (15:30)
[2018-01-02] MEDS ORDERED: LISI-170 PO (15:30)
[2018-01-02] MEDS ORDERED: NICO-486 TD (15:30)
[2018-01-02] MEDS ORDERED: ONDA4TAB13 PO (15:30)
[2018-01-02] MEDS ORDERED: CEFA2PLA10 IV (15:30)
[2018-01-02] MEDS ORDERED: INSU100I13 SQ-INSULIN (15:30)
[2018-01-02] MEDS ORDERED: DOCU-131 PO (15:30)
[2018-01-02] MEDS ORDERED: ACET325T14 PO (15:30)
[2018-01-02 20:23] VITALS: BP 100/67
[2018-01-03] MEDS: CEFAZOLIN PMX 2GM/50ML 50 ML IVPB SCH ×3 (01:06→17:23)
[2018-01-03 01:07] VITALS: BP 95/68
[2018-01-03] MEDS: ACETAMINOPHEN 325 MG TABLET PO SCH ×4 (01:54→21:29)
[2018-01-03 03:37] LABS: BASOPHILS # (AUTO) 0.05 x10^3/uL (0-0.1); BASOPHILS % (AUTO) 1 % (0-1); EOSINOPHILS # (AUTO) 0.22 x10^3/uL (0-0.4); EOSINOPHILS % (AUTO) 4 % (1-7); LYMPHOCYTES # (AUTO) 1.66 x10^3/uL (1-3.4); LYMPHOCYTES % (AUTO) 30 % (22-44); MD NO; MEAN CORPUSCULAR HEMOGLOBIN 28.8 pg (27.5-34.5); MEAN CORPUSCULAR HGB CONC 33.4 g/dL (33.2-36.2); MEAN PLATELET VOLUME 7.2 fL (7.4-10.4); MONOCYTES # (AUTO) 0.37 x10^3/uL (0.2-0.8); MONOCYTES % (AUTO) 7 % (2-9); NEUTROPHILS # (AUTO) 3.17 x10^3/uL (1.8-6.8); NEUTROPHILS % (AUTO) 58 % (42-75); PLATELET COUNT 203 x10^3/uL (130-400); RED BLOOD COUNT 3.58 x10^6/uL (4.38-5.82); RED CELL DISTRIBUTION WIDTH 13.6 % (9.4-14.8)
[2018-01-03 03:40] LABS: ALANINE AMINOTRANSFERASE 9 U/L (12-78); ALBUMIN 2.6 g/dL (3.4-5.0); ANION GAP 10 mmol/L (5-15); CALCIUM 8.7 mg/dL (8.5-10.1); CHLORIDE 103 mmol/L (98-107); CREATININE 0.87 mg/dL (0.7-1.3)
[2018-01-03 03:48] LABS: ALKALINE PHOSPHATASE 67 U/L (45-117); BILIRUBIN,TOTAL 0.2 mg/dL (0.2-1.0); TOTAL PROTEIN 7.9 g/dL (6.4-8.2)
[2018-01-03 05:07] LABS: HCT (SEDRATE) 32.2 % (39.2-51.8)
[2018-01-03] MEDS: INSULIN LISPRO 100 UNITS/ML, PEN SQ-INSULIN SCH ×4 (07:00→21:33)
[2018-01-03 07:33] VITALS: BP 111/73
[2018-01-03] MEDS: LISINOPRIL 20 MG TABLET PO SCH (08:23)
[2018-01-03] MEDS: INSULIN GLARGINE 100 UNITS/ML, PEN SQ-INSULIN SCH (08:23)
[2018-01-03] MEDS: NICOTINE 14MG/24 HR PATCH.TD24 TD SCH (09:30)
[2018-01-03 12:15] VITALS: BP 90/58
[2018-01-03] MEDS: ENOXAPARIN 40 MG/0.4 ML SQ SCH (14:40)
[2018-01-03 20:14] VITALS: BP 99/67
[2018-01-04] MEDS: CEFAZOLIN PMX 2GM/50ML 50 ML IVPB SCH ×3 (01:01→17:55)
[2018-01-04] MEDS: ACETAMINOPHEN 325 MG TABLET PO SCH ×4 (02:30→20:24)
[2018-01-04 03:06] VITALS: BP 122/88
[2018-01-04 06:23] LABS: CREATININE 1.07 mg/dL (0.7-1.3)
[2018-01-04 07:00] VITALS: BP 96/63
[2018-01-04 08:43] VITALS: BP 97/64
[2018-01-04] MEDS: INSULIN LISPRO 100 UNITS/ML, PEN SQ-INSULIN SCH ×4 (08:47→20:25)
[2018-01-04] MEDS: INSULIN GLARGINE 100 UNITS/ML, PEN SQ-INSULIN SCH (08:48)
[2018-01-04] MEDS: NICOTINE 14MG/24 HR PATCH.TD24 TD SCH (08:48)
[2018-01-04] MEDS: LISINOPRIL 20 MG TABLET PO SCH (08:48)
[2018-01-04 13:18] VITALS: BP 107/69
[2018-01-04] MEDS: ENOXAPARIN 40 MG/0.4 ML SQ SCH (14:44)
[2018-01-04 19:20] VITALS: BP 119/75
[2018-01-05] MEDS: ACETAMINOPHEN 325 MG TABLET PO SCH ×4 (02:03→20:30)
[2018-01-05] MEDS: CEFAZOLIN PMX 2GM/50ML 50 ML IVPB SCH ×3 (02:03→18:20)
[2018-01-05 04:05] VITALS: BP 133/78
[2018-01-05 04:08] VITALS: BP 133/78
[2018-01-05 07:00] VITALS: BP 111/72
[2018-01-05] MEDS: INSULIN LISPRO 100 UNITS/ML, PEN SQ-INSULIN SCH ×4 (07:00→20:30)
[2018-01-05] MEDS: LISINOPRIL 20 MG TABLET PO SCH (08:15)
[2018-01-05] MEDS: INSULIN GLARGINE 100 UNITS/ML, PEN SQ-INSULIN SCH (08:16)
[2018-01-05] MEDS: NICOTINE 14MG/24 HR PATCH.TD24 TD SCH (08:18)
[2018-01-05] MEDS: morphine SULFATE 10 MG/ML, 1ML IVPush PRN (11:26)
[2018-01-05 12:40] VITALS: BP 94/56
[2018-01-05] MEDS: ENOXAPARIN 40 MG/0.4 ML SQ SCH (14:27)
[2018-01-05 20:03] VITALS: BP 96/60
[2018-01-06 02:15] VITALS: BP 91/59
[2018-01-06] MEDS: CEFAZOLIN PMX 2GM/50ML 50 ML IVPB SCH ×2 (02:20→10:00)
[2018-01-06] MEDS: ACETAMINOPHEN 325 MG TABLET PO SCH ×3 (02:20→12:30)
[2018-01-06 07:06] VITALS: BP 90/54
[2018-01-06] MEDS: INSULIN LISPRO 100 UNITS/ML, PEN SQ-INSULIN SCH ×3 (07:51→16:00)
[2018-01-06] MEDS: LISINOPRIL 20 MG TABLET PO SCH (09:00)
[2018-01-06] MEDS: INSULIN GLARGINE 100 UNITS/ML, PEN SQ-INSULIN SCH (09:09)
[2018-01-06] MEDS: NICOTINE 14MG/24 HR PATCH.TD24 TD SCH (09:09)
[2018-01-06 13:21] VITALS: BP 100/62
[2018-01-06] MEDS: ENOXAPARIN 40 MG/0.4 ML SQ SCH (14:15)
== END 2018-01-06 16:15 | DRG 853 ==
LOC: ED 07:33 → EDIP 09:01 → 4NOR 11:07
PROVIDERS: ADMIT Internal Medicine; ATTEND Hospitalist
PROC: 0HBNXZZ Excision of Left Foot Skin, External Approach (ICD-10-PCS; 2017-12-12)
PROC: 0JBR0ZZ Excision of Left Foot Subcutaneous Tissue and Fascia, Open Approach (ICD-10-PCS; principal; 2017-12-18)
PROC: 05HY33Z Insertion of Infusion Device into Upper Vein, Percutaneous Approach (ICD-10-PCS; 2017-12-18)
PROC: B54NZZA Ultrasonography of Left Upper Extremity Veins, Guidance (ICD-10-PCS; 2017-12-18)
PROC: B51N1ZA Fluoroscopy of Left Upper Extremity Veins using Low Osmolar Contrast, Guidance (ICD-10-PCS; 2017-12-18)
DX: A41.9 Sepsis, unspecified organism (principal); E43 Unspecified severe protein-calorie malnutrition; T25.322A Burn of third degree of left foot, initial encounter; E87.1 Hypo-osmolality and hyponatremia; L03.116 Cellulitis of left lower limb; E11.52 Type 2 diabetes mellitus with diabetic peripheral angiopathy with gangrene; D64.89 Other specified anemias; E11.621 Type 2 diabetes mellitus with foot ulcer; E86.0 Dehydration; E87.6 Hypokalemia; F17.210 Nicotine dependence, cigarettes, uncomplicated; I10 Essential (primary) hypertension; L97.529 Non-pressure chronic ulcer of other part of left foot with unspecified severity; M65.872 Other synovitis and tenosynovitis, left ankle and foot; M77.30 Calcaneal spur, unspecified foot; E11.65 Type 2 diabetes mellitus with hyperglycemia; R74.8 Abnormal levels of other serum enzymes; S91.339A Puncture wound without foreign body, unspecified foot, initial encounter; W20.8XXA Other cause of strike by thrown, projected or falling object, initial encounter; Y99.0 Civilian activity done for income or pay; Z68.23 Body mass index [BMI] 23.0-23.9, adult; Y93.89 Activity, other specified; Y92.89 Other specified places as the place of occurrence of the external cause
CPT/HCPCS: 36415; 36569; 71045; 76937; 77001; 80048; 80053; 80202; 81003; 82040; 82565; 82607; 82728; 82746; 82962; 83036; 83540; 83550; 83605; 83735; 84100; 85025; 85610; 85651; 86140; 86141; 87040; 87070; 87075; 87077; 87147; 87176; 87181; 87186; 87205; 90471; 90715; 93005; 93306; 93922; 96365; 96366; 96368; 97163; 99291; G0378; J0690; J1650; J2250; J2405; J2543; J2704; J3010; J3370; C1751; J1815; J2270; J2765; J3480; J7030; J7050

== ENCOUNTER → 2018-02-06 | Outpatient (CLI) | payer OTHER, MEDICAID ==
[~2018-02-06] MED LIST: ACET325T14 PO; CEFA2PLA10 IV; DOCU-131 PO; INSU100I11 SQ-INSULIN; INSU100I13 SQ-INSULIN; LISI-170 PO; NICO-486 TD; ONDA4TAB13 PO
== END | disposition home or self-care (01) ==
LOC: WOUND 13:56
PROVIDERS: ATTEND Family Medicine
DX: T81.31XA Disruption of external operation (surgical) wound, not elsewhere classified, initial encounter (principal); E11.621 Type 2 diabetes mellitus with foot ulcer; L97.521 Non-pressure chronic ulcer of other part of left foot limited to breakdown of skin; E11.52 Type 2 diabetes mellitus with diabetic peripheral angiopathy with gangrene; I96 Gangrene, not elsewhere classified; M72.6 Necrotizing fasciitis; Z87.891 Personal history of nicotine dependence; Y83.8 Other surgical procedures as the cause of abnormal reaction of the patient, or of later complication, without mention of misadventure at the time of the procedure
CPT/HCPCS: 97597; 99215

== ENCOUNTER → 2018-02-13 | Outpatient (CLI) | payer OTHER, MEDICAID | END | disposition home or self-care (01) | LOC: WOUND 13:13 | PROVIDERS: ATTEND Family Medicine | DX: T81.31XD Disruption of external operation (surgical) wound, not elsewhere classified, subsequent encounter (principal); E11.621 Type 2 diabetes mellitus with foot ulcer; L97.521 Non-pressure chronic ulcer of other part of left foot limited to breakdown of skin; E11.52 Type 2 diabetes mellitus with diabetic peripheral angiopathy with gangrene; I96 Gangrene, not elsewhere classified; E11.65 Type 2 diabetes mellitus with hyperglycemia; M72.6 Necrotizing fasciitis; I10 Essential (primary) hypertension; Z87.891 Personal history of nicotine dependence; Y83.8 Other surgical procedures as the cause of abnormal reaction of the patient, or of later complication, without mention of misadventure at the time of the procedure | CPT/HCPCS: 97597 ==

== ENCOUNTER → 2018-02-27 | Outpatient (CLI) | payer OTHER, MEDICAID | END | disposition home or self-care (01) | LOC: WOUND 13:00 | PROVIDERS: ATTEND Family Medicine | DX: T81.31XD Disruption of external operation (surgical) wound, not elsewhere classified, subsequent encounter (principal); E11.621 Type 2 diabetes mellitus with foot ulcer; L97.521 Non-pressure chronic ulcer of other part of left foot limited to breakdown of skin; E11.52 Type 2 diabetes mellitus with diabetic peripheral angiopathy with gangrene; I96 Gangrene, not elsewhere classified; M72.6 Necrotizing fasciitis; I10 Essential (primary) hypertension; L84 Corns and callosities; Z87.891 Personal history of nicotine dependence; Y83.8 Other surgical procedures as the cause of abnormal reaction of the patient, or of later complication, without mention of misadventure at the time of the procedure | CPT/HCPCS: 97597 ==

== ENCOUNTER → 2018-03-06 | Outpatient (CLI) | payer OTHER, MEDICAID | END | disposition home or self-care (01) | LOC: WOUND 13:01 | PROVIDERS: ATTEND Family Medicine | DX: T81.31XD Disruption of external operation (surgical) wound, not elsewhere classified, subsequent encounter (principal); E11.52 Type 2 diabetes mellitus with diabetic peripheral angiopathy with gangrene; I96 Gangrene, not elsewhere classified; E11.65 Type 2 diabetes mellitus with hyperglycemia; L84 Corns and callosities; I10 Essential (primary) hypertension; M72.6 Necrotizing fasciitis; Z87.891 Personal history of nicotine dependence; Y83.8 Other surgical procedures as the cause of abnormal reaction of the patient, or of later complication, without mention of misadventure at the time of the procedure | CPT/HCPCS: 99213 ==

== ENCOUNTER → 2019-06-10 | Outpatient (CLI) | payer OTHER, MEDICAID ==
[2019-06-10 08:48] LABS: BASOPHILS # (AUTO) 0.04 x10^3/uL (0-0.1); BASOPHILS % (AUTO) 1 % (0-1); EOSINOPHILS # (AUTO) 0.25 x10^3/uL (0-0.4); EOSINOPHILS % (AUTO) 3 % (1-7); LYMPHOCYTES # (AUTO) 2.23 x10^3/uL (1-3.4); LYMPHOCYTES % (AUTO) 26 % (22-44); MD NO; MEAN CORPUSCULAR HEMOGLOBIN 30.3 pg (27.5-34.5); MEAN CORPUSCULAR HGB CONC 33.8 g/dL (33.2-36.2); MEAN CORPUSCULAR VOLUME 89.4 fL (81-97); MONOCYTES # (AUTO) 0.53 x10^3/uL (0.2-0.8); MONOCYTES % (AUTO) 6 % (2-9); NEUTROPHILS # (AUTO) 5.46 x10^3/uL (1.8-6.8); NEUTROPHILS % (AUTO) 64 % (42-75); PLATELET COUNT 265 x10^3/uL (130-400); RED BLOOD COUNT 4.91 x10^6/uL (4.38-5.82); RED CELL DISTRIBUTION WIDTH 13.6 % (9.4-14.8)
[2019-06-10 09:01] LABS: ALANINE AMINOTRANSFERASE 23 U/L (12-78); ALBUMIN 3.6 g/dL (3.4-5.0); ANION GAP 6 mmol/L (5-15); CALCIUM 8.7 mg/dL (8.5-10.1); CHLORIDE 109 mmol/L (98-107); CHOLESTEROL, TOTAL 185 mg/dL (140-239); CREATININE 0.94 mg/dL (0.7-1.3)
[2019-06-10 09:04] LABS: ALKALINE PHOSPHATASE 84 U/L (45-117); BILIRUBIN,TOTAL 0.4 mg/dL (0.2-1.0); CHOL/HDL RATIO 4.3; HDL CHOL % 23 % (26-37); HDL CHOLESTEROL (DIRECT) 43 mg/dL (40-60); LDL CHOLESTEROL,CALCULATED 120 mg/dL (54-169); LDL/HDL RATIO 2.8 (0.5-3.0); TOTAL PROTEIN 7.6 g/dL (6.4-8.2); TRIGLYCERIDES 111 mg/dL (50-200); VLDL CHOLESTEROL 22 mg/dL (0-25)
== END | disposition home or self-care (01) ==
LOC: LAB 08:26
PROVIDERS: ATTEND Nurse Practitioner Family
DX: E11.65 Type 2 diabetes mellitus with hyperglycemia (principal)
CPT/HCPCS: 36415; 80053; 80061; 82043; 82570; 83036; 85025

== ENCOUNTER 2019-12-24 10:06 | Outpatient (CLI) | payer OTHER, MEDICAID | END 2019-12-24 23:59 | disposition home or self-care (01) | LOC: WOUND 10:06 | PROVIDERS: ATTEND Family Medicine | DX: L03.012 Cellulitis of left finger (principal); S61.012A Laceration without foreign body of left thumb without damage to nail, initial encounter; E11.40 Type 2 diabetes mellitus with diabetic neuropathy, unspecified; Z87.891 Personal history of nicotine dependence; X58.XXXA Exposure to other specified factors, initial encounter; Y93.89 Activity, other specified; Y92.89 Other specified places as the place of occurrence of the external cause; Y99.8 Other external cause status | CPT/HCPCS: 11042; 99215 ==

== ENCOUNTER 2019-12-31 10:38 | Outpatient (CLI) | payer OTHER, MEDICAID | END 2019-12-31 23:59 | disposition home or self-care (01) | LOC: WOUND 10:38 | PROVIDERS: ATTEND Family Medicine | DX: L03.012 Cellulitis of left finger (principal); S61.012D Laceration without foreign body of left thumb without damage to nail, subsequent encounter; E11.40 Type 2 diabetes mellitus with diabetic neuropathy, unspecified; Z87.891 Personal history of nicotine dependence; X58.XXXD Exposure to other specified factors, subsequent encounter | CPT/HCPCS: 97597 ==

== ENCOUNTER → 2020-01-07 | Outpatient (CLI) | payer OTHER, MEDICAID | END | disposition home or self-care (01) | LOC: WOUND 09:48 | PROVIDERS: ATTEND Family Medicine | DX: L03.012 Cellulitis of left finger (principal); S61.012D Laceration without foreign body of left thumb without damage to nail, subsequent encounter; E11.40 Type 2 diabetes mellitus with diabetic neuropathy, unspecified; Z87.891 Personal history of nicotine dependence; X58.XXXD Exposure to other specified factors, subsequent encounter | CPT/HCPCS: 99213 ==

== ENCOUNTER → 2020-01-14 | Outpatient (CLI) | payer OTHER, MEDICAID | END | disposition home or self-care (01) | LOC: WOUND 09:49 | PROVIDERS: ATTEND Family Medicine | DX: S61.012D Laceration without foreign body of left thumb without damage to nail, subsequent encounter (principal); E11.40 Type 2 diabetes mellitus with diabetic neuropathy, unspecified; Z87.891 Personal history of nicotine dependence; Z79.4 Long term (current) use of insulin; X58.XXXD Exposure to other specified factors, subsequent encounter | CPT/HCPCS: 99213 ==

== ENCOUNTER 2020-01-29 10:02 | Inpatient (IN) | payer OTHER, MEDICAID ==
[~2020-01-29] VITALS: Ht 182.9 cm; Wt 90.4 kg
[2020-01-29] MEDS ORDERED: SODIUM CHLORIDE 0.9% 1,000ML IVBOLUS ONE (10:30)
[2020-01-29] MEDS ORDERED: ACETAMINOPHEN 500 MG TABLET PO ONE (10:30)
--- NOTE | 2020-01-29 10:44 | NUR ---
PT'S NOT INTHE ROOM - US DELAY
[2020-01-29] MEDS ORDERED: VANCOMYCIN PER PHARMACY MC PRN ×2 (11:00→15:00)
[2020-01-29] MEDS ORDERED: PIPERACILLIN/TAZO/PMX 3.375GM 50 ML IV ONE (11:00)
[2020-01-29 11:01] LABS: MEAN CORPUSCULAR HEMOGLOBIN 29.1 pg (27.5-34.5); MEAN CORPUSCULAR HGB CONC 33.1 g/dL (33.2-36.2); MEAN PLATELET VOLUME 8.8 fL (7.4-10.4); PLATELET COUNT 343 x10^3/uL (130-400); RED BLOOD COUNT 4.14 x10^6/uL (4.38-5.82); RED CELL DISTRIBUTION WIDTH 14.3 % (9.4-14.8)
[2020-01-29] MEDS ORDERED: PIPERACILLIN/TAZO/PMX 3.375GM 50 ML ONE ×2 (11:01→17:37)
[2020-01-29 11:14] LABS: ALANINE AMINOTRANSFERASE 24 U/L (12-78); ALBUMIN 2.6 g/dL (3.4-5.0); ANION GAP 10 mmol/L (5-15); CALCIUM 8.7 mg/dL (8.5-10.1); CHLORIDE 100 mmol/L (98-107); CREATININE 1.41 mg/dL (0.7-1.3); MD YES
[2020-01-29 11:15] LABS: BAND#(MANUAL) 2.22 x10^3/uL; BANDS%(MANUAL) 13 % (0-7); LYMPH#(MANUAL) 1.54 x10^3/uL (1-3.4); LYMPHS% (MANUAL) 9 % (22-44); MONOS#(MANUAL) 0.51 x10^3/uL (0.3-2.7); MONOS% (MANUAL) 3 % (2-9); SEG#(MANUAL) 12.83 x10^3/uL (1.8-6.8); SEGS% (MANUAL) 75 % (42-75)
[2020-01-29 11:16] LABS: <PLATELET ESTIMATE> ADEQUATE; ALKALINE PHOSPHATASE 131 U/L (45-117); BILIRUBIN,TOTAL 0.4 mg/dL (0.2-1.0); LARGE PLATELETS 1+; POLYCHROMASIA 1+; TOTAL PROTEIN 8.6 g/dL (6.4-8.2)
--- NOTE | 2020-01-29 11:16 | NUR ---
U/S AT BS. BLD CX BAND NOT ON PT WRIST; CALLED LAB RE: BLOOD CX. PER TECH, CX'S WERE DRAWN EARLIER.
--- NOTE | 2020-01-29 11:20 | NUR ---
U/S COMPLETED. PT RT LOWER LEG SWOLLEN, REDDENED, HOT TO THE TOUCH. RT PEDAL EDEMA -NON-PITTING, CAP REFILL < 3 SEC. RT PEDAL PULSE DIMINISHED. SX X 2 WEEK. RT GREAT TOE NAIL THICKENED. PT DENIES FOOT PAIN CURRENTLY. REPORTS HE'S BEEN AMBULATORY. LT PEDAL PULSE STRONG & REG. SKIN GRAFT ON LT FOOT. HAS BEEN TAKING NYQUIL (LAST DOSE LAST NOC) AND ASA (LAST DOSE 0600 TODAY) FOR PAIN.
[2020-01-29] MEDS ORDERED: VANCOMYCIN 2,000 MG in SODIUM CHLORIDE 0.9% 500 ML IV ONE (11:30)
[2020-01-29 11:43] LABS: HCT (SEDRATE) 36.4 % (39.2-51.8)
--- NOTE | 2020-01-29 11:49 | NUR ---
CX BAND PLACED ON WRIST. NS AND ZOSYN HUNG. ZOSYN INFUSING VIA PUMP. PT NOTIFIED OF NEED FOR URINE SPECIMEN; URINAL PROVIDED.
--- NOTE | 2020-01-29 11:50 | NUR ---
SHADI ARTEAGA AT BEDSIDE TO DISCUSS POC. NPO STATUS. TO BE ADMITTED.
[2020-01-29] MEDS ORDERED: INSU100C5 SQ-INSULIN (11:53)
[2020-01-29] MEDS ORDERED: METF500T17 PO (11:53)
[2020-01-29] MEDS ORDERED: INSU100V13 SQ (11:53)
[2020-01-29] MEDS ORDERED: CLINDAMYCIN PMX 600MG/50ML 50 ML IVPB ONE (12:00)
--- NOTE | 2020-01-29 12:05 | NUR ---
DR CASH AT BS
--- NOTE | 2020-01-29 12:23 | NUR ---
TERRY GUERRA, INFUSING VIA PUMP AT 250ML/HR. NS INFUSING. IV SITE PATENT.
[2020-01-29] MEDS ORDERED: SODIUM CHLORIDE FLUSH 10ML SYR IVF PRN (12:30)
[2020-01-29] MEDS ORDERED: SODIUM CHLORIDE 0.9% 1,000 ML IV ONE (12:30)
[2020-01-29] MEDS ORDERED: CLINDAMYCIN PMX 600MG/50ML 50 ML ONE (12:31)
--- NOTE | 2020-01-29 12:45 | NUR ---
RED GUERRA, INFUSING VIA PUMP.
--- NOTE | 2020-01-29 12:49 | NUR ---
PILLOW PLACED UNDER RT LEG FOR ELEVATION.
--- NOTE | 2020-01-29 13:03 | NUR ---
XR AT BS
--- NOTE | 2020-01-29 13:52 | NUR ---
RESTING QUIETLY ON GURNEY, WATCHING TV, CALL LIGHT AND URINAL W/IN REACH. REMINDED PT OF NEED FOR URINE SPECIMEN. NS AND VANCO INFUSING; LT FA IV SITE PATENT. PT AWAITING ADMISSION.
[2020-01-29] MEDS ORDERED: DEXTROSE 4 GM TAB.CHEW PO PRN (15:00)
[2020-01-29] MEDS ORDERED: DEXTROSE 50%, 50ML SYRINGE IVPush PRN (15:00)
[2020-01-29] MEDS ORDERED: ONDANSETRON 2MG/ML, 2ML IVPush PRN (15:00)
[2020-01-29] MEDS ORDERED: KETOROLAC 30 MG/1 ML IV PRN (15:00)
[2020-01-29] MEDS ORDERED: ENOXAPARIN 40 MG/0.4 ML SQ SCH (15:00)
[2020-01-29] MEDS ORDERED: ONDANSETRON ODT 4 MG PO PRN (15:00)
[2020-01-29] MEDS ORDERED: LACTATED RINGERS 1,000 ML IVBOLUS ONE (15:00)
[2020-01-29] MEDS ORDERED: GLUCAGON 1 MG IM PRN (15:00)
--- NOTE | 2020-01-29 15:06 | NUR ---
THROUGHPUT RN: SPOKE WITH DR. BARAJAS, PER WANTS TO KEEP ADMIT ORDER FOR MED TELE FOR TACHY AND SEPSIS.
--- NOTE | 2020-01-29 15:17 | NUR ---
SEPSIS FLOW SHEET INITIATED. PT DOESN'T MEET CRITERIA FOR SECTION C, AT THIS TIME.
[2020-01-29 15:23] LABS: MICROSCOPIC INDICATED
--- NOTE | 2020-01-29 15:36 | NUR ---
PT REPORT TO KIRAN JAEGER. PT CARE TRANSFERRED.
[2020-01-29] MEDS ORDERED: GADOTERATE 10 MMOL/20 ML SYR ONE (16:14)
[2020-01-29] MEDS: PIPERACILLIN/TAZO/PMX 3.375GM 50 ML IV SCH (17:00)
[2020-01-29] MEDS ORDERED: ENOXAPARIN 40 MG/0.4 ML ONE (17:36)
--- NOTE | 2020-01-29 17:58 | NUR ---
pt transfered to tele. vss no complaints of pain, report given rn to rn.
[2020-01-29 18:31] VITALS: BP 149/77
[2020-01-29] MEDS: ACETAMINOPHEN 325 MG TABLET PO PRN (18:40)
[2020-01-29 20:39] VITALS: BP 126/68
[2020-01-29] MEDS: INSULIN LISPRO 100 UNITS/ML, PEN SQ-INSULIN SCH ×2 (20:49→21:00)
[2020-01-29] MEDS: INSULIN GLARGINE 100 UNITS/ML, PEN SQ-INSULIN SCH (20:50)
[2020-01-29] MEDS ORDERED: PHARMACOKINETIC CONSULTATION MC ONE (21:00)
[2020-01-29] MEDS: SODIUM CHLORIDE FLUSH 10ML SYR IVF SCH (21:00)
[2020-01-29] MEDS ORDERED: PHARMACOKINETIC MONITORING MC PRN (21:00)
[2020-01-29] MEDS: LACTATED RINGERS 1,000 ML IV SCH ×2 (21:00→22:40)
[2020-01-29] MEDS: CLINDAMYCIN PMX 600MG/50ML 50 ML IV SCH (22:40)
[2020-01-30] MEDS ORDERED: VANCOMYCIN 1,700 MG in SODIUM CHLORIDE 0.9% 250 ML IV SCH
[2020-01-30 03:11] VITALS: BP 147/77
[2020-01-30] MEDS: ACETAMINOPHEN 325 MG TABLET PO PRN ×5 (03:24→22:30)
[2020-01-30] MEDS: PIPERACILLIN/TAZO/PMX 3.375GM 50 ML IV SCH ×3 (03:24→18:28)
[2020-01-30 05:47] LABS: ALBUMIN 1.8 g/dL (3.4-5.0); CHLORIDE 101 mmol/L (98-107)
[2020-01-30 05:50] LABS: ALANINE AMINOTRANSFERASE 20 U/L (12-78); ALKALINE PHOSPHATASE 219 U/L (45-117); ANION GAP 8 mmol/L (5-15); BILIRUBIN,TOTAL 0.7 mg/dL (0.2-1.0); CALCIUM 7.7 mg/dL (8.5-10.1); TOTAL PROTEIN 6.8 g/dL (6.4-8.2)
[2020-01-30 05:59] LABS: MEAN PLATELET VOLUME 9.2 fL (7.4-10.4); PLATELET COUNT 298 x10^3/uL (130-400); RED BLOOD COUNT 3.41 x10^6/uL (4.38-5.82); RED CELL DISTRIBUTION WIDTH 14.6 % (9.4-14.8)
[2020-01-30] MEDS: CLINDAMYCIN PMX 600MG/50ML 50 ML IV SCH ×3 (06:15→22:24)
[2020-01-30 06:20] LABS: MD YES
[2020-01-30 06:21] LABS: BAND#(MANUAL) 2.53 x10^3/uL; BANDS%(MANUAL) 16 % (0-7); LYMPH#(MANUAL) 2.53 x10^3/uL (1-3.4); LYMPHS% (MANUAL) 16 % (22-44); MONOS#(MANUAL) 0.79 x10^3/uL (0.3-2.7); MONOS% (MANUAL) 5 % (2-9); SEG#(MANUAL) 9.95 x10^3/uL (1.8-6.8); SEGS% (MANUAL) 63 % (42-75)
[2020-01-30 06:22] LABS: <PLATELET ESTIMATE> ADEQUATE; LARGE PLATELETS 1+; POLYCHROMASIA 1+
[2020-01-30 07:28] VITALS: BP 123/73
[2020-01-30] MEDS: NS + 20MEQ KCL 1,000 ML IV SCH ×2 (09:33→17:28)
[2020-01-30] MEDS: INSULIN LISPRO 100 UNITS/ML, PEN SQ-INSULIN SCH ×5 (09:39→20:41)
[2020-01-30] MEDS: SODIUM CHLORIDE FLUSH 10ML SYR IVF SCH ×2 (09:40→21:00)
[2020-01-30 15:59] VITALS: BP 126/72
[2020-01-30] MEDS: morphine SULFATE 10 MG/ML, 1ML IVPush PRN (18:31)
[2020-01-30] MEDS: ENOXAPARIN 30 MG/0.3 ML SQ SCH (18:31)
[2020-01-30 20:09] VITALS: BP 118/68
[2020-01-30] MEDS: VANCOMYCIN 1,700 MG in SODIUM CHLORIDE 0.9% 250 ML IV SCH (20:36)
[2020-01-30] MEDS: INSULIN GLARGINE 100 UNITS/ML, PEN SQ-INSULIN SCH (20:41)
[2020-01-31] MEDS: NS + 20MEQ KCL 1,000 ML IV SCH ×4 (00:56→21:29)
[2020-01-31 01:49] VITALS: BP 136/79
[2020-01-31] MEDS: PIPERACILLIN/TAZO/PMX 3.375GM 50 ML IV SCH ×3 (02:03→18:52)
[2020-01-31] MEDS: CLINDAMYCIN PMX 600MG/50ML 50 ML IV SCH ×3 (06:02→21:29)
[2020-01-31 06:09] LABS: ANION GAP 7 mmol/L (5-15); CALCIUM 7.4 mg/dL (8.5-10.1); CHLORIDE 106 mmol/L (98-107); CREATININE 0.94 mg/dL (0.7-1.3)
[2020-01-31 06:29] LABS: MEAN CORPUSCULAR HEMOGLOBIN 28.4 pg (27.5-34.5); MEAN CORPUSCULAR HGB CONC 32.5 g/dL (33.2-36.2); MEAN PLATELET VOLUME 9.3 fL (7.4-10.4); PLATELET COUNT 318 x10^3/uL (130-400); RED BLOOD COUNT 3.45 x10^6/uL (4.38-5.82); RED CELL DISTRIBUTION WIDTH 14.7 % (9.4-14.8)
[2020-01-31 06:50] LABS: MD YES
[2020-01-31 06:52] LABS: <PLATELET ESTIMATE> ADEQUATE; BAND#(MANUAL) 1.26 x10^3/uL; BANDS%(MANUAL) 8 % (0-7); EOS#(MANUAL) 0.16 x10^3/uL (0.0-0.4); EOS% (MANUAL) 1 % (1-7); LYMPH#(MANUAL) 1.88 x10^3/uL (1-3.4); LYMPHS% (MANUAL) 12 % (22-44); MONOS#(MANUAL) 0.47 x10^3/uL (0.3-2.7); MONOS% (MANUAL) 3 % (2-9); POLYCHROMASIA 1+; SEG#(MANUAL) 11.93 x10^3/uL (1.8-6.8); SEGS% (MANUAL) 76 % (42-75)
[2020-01-31 06:53] LABS: LARGE PLATELETS 1+
[2020-01-31] MEDS: INSULIN LISPRO 100 UNITS/ML, PEN SQ-INSULIN SCH ×4 (07:45→21:42)
[2020-01-31 07:47] VITALS: BP 144/78
[2020-01-31] MEDS: ACETAMINOPHEN 325 MG TABLET PO PRN ×3 (09:09→20:19)
[2020-01-31] MEDS: SODIUM CHLORIDE FLUSH 10ML SYR IVF SCH ×2 (09:12→20:24)
[2020-01-31 13:17] VITALS: BP 168/79
[2020-01-31] MEDS: VANCOMYCIN 1,700 MG in SODIUM CHLORIDE 0.9% 250 ML IV SCH (14:00)
[2020-01-31] MEDS: DAPTOMYCIN 550 MG in SODIUM CHLORIDE 0.9% 100 ML IVPB SCH (16:38)
[2020-01-31] MEDS: ENOXAPARIN 30 MG/0.3 ML SQ SCH (18:52)
[2020-01-31 19:27] VITALS: BP 127/74
[2020-01-31] MEDS: INSULIN GLARGINE 100 UNITS/ML, PEN SQ-INSULIN SCH (20:19)
[2020-01-31] MEDS: morphine SULFATE 10 MG/ML, 1ML IVPush PRN (20:31)
[2020-02-01 00:32] VITALS: BP 161/81
[2020-02-01] MEDS: morphine SULFATE 10 MG/ML, 1ML IVPush PRN (01:42)
[2020-02-01] MEDS: ACETAMINOPHEN 325 MG TABLET PO PRN ×5 (01:42→22:11)
[2020-02-01] MEDS: PIPERACILLIN/TAZO/PMX 3.375GM 50 ML IV SCH ×4 (01:42→21:02)
[2020-02-01 05:29] LABS: MEAN CORPUSCULAR HEMOGLOBIN 28.6 pg (27.5-34.5); MEAN CORPUSCULAR HGB CONC 32.7 g/dL (33.2-36.2); PLATELET COUNT 429 x10^3/uL (130-400); RED BLOOD COUNT 3.76 x10^6/uL (4.38-5.82); RED CELL DISTRIBUTION WIDTH 15.1 % (9.4-14.8)
[2020-02-01 05:38] LABS: ANION GAP 9 mmol/L (5-15); CALCIUM 7.7 mg/dL (8.5-10.1); CHLORIDE 105 mmol/L (98-107)
[2020-02-01 05:42] LABS: CREATINE KINASE, TOTAL 133 U/L (39-308); CREATININE 0.97 mg/dL (0.7-1.3)
[2020-02-01] MEDS: CLINDAMYCIN PMX 600MG/50ML 50 ML IV SCH ×3 (05:50→21:02)
[2020-02-01 05:58] LABS: MD YES
[2020-02-01 06:00] LABS: BAND#(MANUAL) 1.19 x10^3/uL; BANDS%(MANUAL) 7 % (0-7); BASOS#(MANUAL) 0.17 x10^3/uL (0-0.1); BASOS% (MANUAL) 1 % (0-1); LYMPH#(MANUAL) 2.04 x10^3/uL (1-3.4); LYMPHS% (MANUAL) 12 % (22-44); MONOS#(MANUAL) 0.51 x10^3/uL (0.3-2.7); MONOS% (MANUAL) 3 % (2-9); MYELOCYTES# (MANUAL) 0.17 x10^3/uL (0-0); MYELOCYTES% (MANUAL) 1 % (0-0); SEG#(MANUAL) 12.92 x10^3/uL (1.8-6.8); SEGS% (MANUAL) 76 % (42-75)
[2020-02-01 06:01] LABS: <PLATELET ESTIMATE> ADEQUATE; LARGE PLATELETS 1+
[2020-02-01 06:48] VITALS: BP 157/83
[2020-02-01] MEDS: INSULIN LISPRO 100 UNITS/ML, PEN SQ-INSULIN SCH ×4 (08:14→21:11)
[2020-02-01] MEDS: VANCOMYCIN 1,700 MG in SODIUM CHLORIDE 0.9% 250 ML IV SCH (08:35)
[2020-02-01] MEDS: SODIUM CHLORIDE FLUSH 10ML SYR IVF SCH ×2 (11:33→21:02)
[2020-02-01] MEDS: NS + 20MEQ KCL 1,000 ML IV SCH ×2 (11:33→22:12)
[2020-02-01 11:49] VITALS: BP 164/75
[2020-02-01] MEDS ORDERED: CHLORHEXIDINE 15 ML UDC ONE (12:21)
[2020-02-01] MEDS ORDERED: CHLORHEXIDINE 15 ML UDC MM ONE (12:30)
[2020-02-01] MEDS ORDERED: PROPOFOL 10 MG/ML, 20ML ONE ×2 (12:51→13:09)
[2020-02-01] MEDS ORDERED: ONDANSETRON 2MG/ML, 2ML IVPush PRN (13:00)
[2020-02-01] MEDS ORDERED: ACETAMINOPHEN 325 MG TABLET PO PRN (13:00)
[2020-02-01] MEDS ORDERED: FENTANYL PF 100 MCG/2ML IV PRN (13:00)
[2020-02-01] MEDS ORDERED: morphine SULFATE 10 MG/ML, 1ML IVPush PRN (13:00)
[2020-02-01] MEDS ORDERED: LABETALOL 5MG/ML, 20ML IV PRN (13:00)
[2020-02-01] MEDS ORDERED: MEPERIDINE/PF 25MG/0.5ML IVPush PRN (13:00)
[2020-02-01] MEDS ORDERED: hydrALAzine 20 MG/ML, 1ML IV PRN (13:00)
[2020-02-01] MEDS ORDERED: OXYcodone 5 MG/5 ML ORAL.SOL UDC PO PRN (13:00)
[2020-02-01] MEDS ORDERED: HYDROmorphone 1 MG/ML, 1ML INJ IVPush PRN (13:00)
[2020-02-01] MEDS ORDERED: FENTANYL PF 250 MCG/5ML ONE (13:07)
[2020-02-01] MEDS ORDERED: CEFAZOLIN 1,000 MG ONE ×2 (13:09)
[2020-02-01 14:25] VITALS: BP 150/88
[2020-02-01] MEDS: ENOXAPARIN 30 MG/0.3 ML SQ SCH (17:59)
[2020-02-01] MEDS: DAPTOMYCIN 550 MG in SODIUM CHLORIDE 0.9% 100 ML IVPB SCH (18:38)
[2020-02-01 20:49] VITALS: BP 144/90
[2020-02-01] MEDS: INSULIN GLARGINE 100 UNITS/ML, PEN SQ-INSULIN SCH (21:12)
[2020-02-02 02:33] VITALS: BP 142/79
[2020-02-02] MEDS: PIPERACILLIN/TAZO/PMX 3.375GM 50 ML IV SCH ×4 (04:34→20:13)
[2020-02-02] MEDS: ACETAMINOPHEN 325 MG TABLET PO PRN ×2 (04:35→15:50)
[2020-02-02] MEDS: NS + 20MEQ KCL 1,000 ML IV SCH ×3 (04:58→21:08)
[2020-02-02 05:52] LABS: MEAN CORPUSCULAR HEMOGLOBIN 28.2 pg (27.5-34.5); MEAN CORPUSCULAR HGB CONC 32.2 g/dL (33.2-36.2); MEAN PLATELET VOLUME 8.7 fL (7.4-10.4); PLATELET COUNT 394 x10^3/uL (130-400); RED BLOOD COUNT 3.47 x10^6/uL (4.38-5.82); RED CELL DISTRIBUTION WIDTH 15.1 % (9.4-14.8)
[2020-02-02] MEDS: CLINDAMYCIN PMX 600MG/50ML 50 ML IV SCH ×2 (05:53→14:34)
[2020-02-02 05:57] LABS: ANION GAP 9 mmol/L (5-15); CALCIUM 7.6 mg/dL (8.5-10.1); CHLORIDE 108 mmol/L (98-107); CREATININE 0.78 mg/dL (0.7-1.3)
[2020-02-02 06:23] LABS: MD YES
[2020-02-02 06:27] LABS: BAND#(MANUAL) 0.42 x10^3/uL; BANDS%(MANUAL) 3 % (0-7); EOS#(MANUAL) 0.14 x10^3/uL (0.0-0.4); EOS% (MANUAL) 1 % (1-7); LYMPHS% (MANUAL) 20 % (22-44); METAMYELOCYTES% (MANUAL) 5 % (0-1); MONOS#(MANUAL) 0.84 x10^3/uL (0.3-2.7); MONOS% (MANUAL) 6 % (2-9); MYELOCYTES# (MANUAL) 0.14 x10^3/uL (0-0); MYELOCYTES% (MANUAL) 1 % (0-0); SEG#(MANUAL) 8.96 x10^3/uL (1.8-6.8); SEGS% (MANUAL) 64 % (42-75)
[2020-02-02 06:28] LABS: <PLATELET ESTIMATE> ADEQUATE; POLYCHROMASIA 1+
[2020-02-02 06:29] LABS: LARGE PLATELETS 1+
[2020-02-02 07:44] VITALS: BP 138/74
[2020-02-02] MEDS: INSULIN LISPRO 100 UNITS/ML, PEN SQ-INSULIN SCH ×4 (08:32→20:23)
[2020-02-02] MEDS: SODIUM CHLORIDE FLUSH 10ML SYR IVF SCH ×2 (09:00→21:08)
[2020-02-02] MEDS: morphine SULFATE 10 MG/ML, 1ML IVPush PRN ×2 (09:27→20:21)
[2020-02-02 14:42] VITALS: BP 135/77
[2020-02-02] MEDS: DAPTOMYCIN 550 MG in SODIUM CHLORIDE 0.9% 100 ML IVPB SCH (15:57)
[2020-02-02] MEDS: ENOXAPARIN 40 MG/0.4 ML SQ SCH (17:00)
[2020-02-02] MEDS: INSULIN GLARGINE 100 UNITS/ML, PEN SQ-INSULIN SCH (20:22)
[2020-02-02 20:39] VITALS: BP 144/77
[2020-02-03 01:39] VITALS: BP 153/76
[2020-02-03] MEDS: ACETAMINOPHEN 325 MG TABLET PO PRN ×3 (01:39→22:14)
[2020-02-03 01:45] VITALS: BP 148/79
[2020-02-03] MEDS: PIPERACILLIN/TAZO/PMX 3.375GM 50 ML IV SCH ×2 (04:16→12:21)
[2020-02-03] MEDS: NS + 20MEQ KCL 1,000 ML IV SCH (04:16)
[2020-02-03 05:30] LABS: BASOPHILS % (AUTO) 1 % (0-1); EOSINOPHILS % (AUTO) 2 % (1-7); LYMPHOCYTES % (AUTO) 13 % (22-44); MEAN CORPUSCULAR HEMOGLOBIN 28.3 pg (27.5-34.5); MEAN CORPUSCULAR HGB CONC 32.3 g/dL (33.2-36.2); MEAN PLATELET VOLUME 8.3 fL (7.4-10.4); MONOCYTES % (AUTO) 7 % (2-9); NEUTROPHILS % (AUTO) 78 % (42-75); PLATELET COUNT 461 x10^3/uL (130-400); RED BLOOD COUNT 3.45 x10^6/uL (4.38-5.82); RED CELL DISTRIBUTION WIDTH 14.9 % (9.4-14.8)
[2020-02-03 05:32] LABS: ANION GAP 5 mmol/L (5-15); CALCIUM 7.7 mg/dL (8.5-10.1); CHLORIDE 108 mmol/L (98-107); CREATININE 0.94 mg/dL (0.7-1.3)
[2020-02-03 05:44] LABS: FREE T4 (FREE THYROXINE) 1.04 ng/dL (0.76-1.46)
[2020-02-03 06:12] LABS: MD SCAN
[2020-02-03 06:32] VITALS: BP 143/71
[2020-02-03] MEDS: SODIUM CHLORIDE FLUSH 10ML SYR IVF SCH ×2 (08:41→22:00)
[2020-02-03] MEDS: INSULIN LISPRO 100 UNITS/ML, PEN SQ-INSULIN SCH ×4 (08:41→22:00)
[2020-02-03] MEDS: INSULIN GLARGINE 100 UNITS/ML, PEN SQ-INSULIN SCH ×2 (12:22→22:00)
[2020-02-03 12:34] VITALS: BP 163/69
[2020-02-03] MEDS: ENOXAPARIN 40 MG/0.4 ML SQ SCH (17:00)
[2020-02-03] MEDS: morphine SULFATE 10 MG/ML, 1ML IVPush PRN (17:20)
[2020-02-03 18:47] VITALS: BP 157/75
[2020-02-03] MEDS: CEFAZOLIN PMX 2GM/50ML 50 ML IVPB SCH (21:57)
[2020-02-04] VITALS (7 sets, daily range): BP systolic 113–163; BP diastolic 65–89
[2020-02-04] MEDS: CEFAZOLIN PMX 2GM/50ML 50 ML IVPB SCH ×3 (06:09→23:33)
[2020-02-04 06:12] LABS: MEAN CORPUSCULAR HEMOGLOBIN 28.7 pg (27.5-34.5); MEAN CORPUSCULAR HGB CONC 32.9 g/dL (33.2-36.2); MEAN PLATELET VOLUME 7.9 fL (7.4-10.4); PLATELET COUNT 548 x10^3/uL (130-400); RED CELL DISTRIBUTION WIDTH 15.1 % (9.4-14.8)
[2020-02-04 06:14] LABS: ANION GAP 6 mmol/L (5-15); CALCIUM 8.5 mg/dL (8.5-10.1); CHLORIDE 108 mmol/L (98-107); CREATININE 0.85 mg/dL (0.7-1.3)
[2020-02-04] MEDS: INSULIN LISPRO 100 UNITS/ML, PEN SQ-INSULIN SCH ×4 (08:05→21:36)
[2020-02-04] MEDS: SODIUM CHLORIDE FLUSH 10ML SYR IVF SCH ×2 (08:07→21:37)
[2020-02-04 08:11] LABS: MD YES
[2020-02-04 08:26] LABS: BAND#(MANUAL) 0.43 x10^3/uL; BANDS%(MANUAL) 4 % (0-7); EOS#(MANUAL) 0.22 x10^3/uL (0.0-0.4); EOS% (MANUAL) 2 % (1-7); LYMPH#(MANUAL) 1.08 x10^3/uL (1-3.4); LYMPHS% (MANUAL) 10 % (22-44); METAMYELOCYTES# (MANUAL) 0.32 x10^3/uL (0-0); METAMYELOCYTES% (MANUAL) 3 % (0-1); MONOS#(MANUAL) 0.32 x10^3/uL (0.3-2.7); MONOS% (MANUAL) 3 % (2-9); MYELOCYTES# (MANUAL) 0.11 x10^3/uL (0-0); MYELOCYTES% (MANUAL) 1 % (0-0); SEG#(MANUAL) 8.32 x10^3/uL (1.8-6.8); SEGS% (MANUAL) 77 % (42-75)
[2020-02-04 08:27] LABS: <PLATELET ESTIMATE> INCREASED; <PLT MORPHOLOGY> NORMAL PLT MORPH; ANISOCYTOSIS 1+; POLYCHROMASIA 1+
[2020-02-04] MEDS ORDERED: CHLORHEXIDINE 15 ML UDC ONE (08:54)
[2020-02-04] MEDS: INSULIN GLARGINE 100 UNITS/ML, PEN SQ-INSULIN SCH ×2 (09:00→21:37)
[2020-02-04] MEDS ORDERED: CHLORHEXIDINE 15 ML UDC MM ONE (09:00)
[2020-02-04] MEDS ORDERED: FENTANYL PF 100 MCG/2ML ONE ×2 (09:13→09:24)
[2020-02-04] MEDS ORDERED: MEPERIDINE/PF 25MG/0.5ML IVPush PRN (09:30)
[2020-02-04] MEDS ORDERED: LABETALOL 5MG/ML, 20ML IV PRN (09:30)
[2020-02-04] MEDS ORDERED: DIAZEPAM 5 MG/ML, 2ML IVPush PRN (09:30)
[2020-02-04] MEDS ORDERED: ACETAMINOPHEN 325 MG TABLET PO PRN (09:30)
[2020-02-04] MEDS ORDERED: OXYcodone 5 MG/5 ML ORAL.SOL UDC PO PRN (09:30)
[2020-02-04] MEDS ORDERED: FENTANYL PF 100 MCG/2ML IV PRN (09:30)
[2020-02-04] MEDS ORDERED: ALBUTEROL SULFATE 2.5 MG/3 ML NPPB PRN (09:30)
[2020-02-04] MEDS ORDERED: HYDROmorphone 2 MG/ML, 1ML IVPush PRN (09:30)
[2020-02-04] MEDS ORDERED: PROMETHAZINE 25 MG/ML, 1ML IV PRN (09:30)
[2020-02-04] MEDS ORDERED: hydrALAzine 20 MG/ML, 1ML IV PRN (09:30)
[2020-02-04] MEDS ORDERED: KETOROLAC 30 MG/1 ML IV PRN (09:30)
[2020-02-04] MEDS ORDERED: DEXAMETHASONE 4 MG/ML, 1ML ONE (09:37)
[2020-02-04] MEDS ORDERED: CEFAZOLIN 1,000 MG ONE (09:37)
[2020-02-04] MEDS ORDERED: ROCURONIUM 10MG/ML,5ML ONE (09:37)
[2020-02-04] MEDS ORDERED: PROPOFOL 10 MG/ML, 20ML ONE (09:37)
[2020-02-04] MEDS ORDERED: ONDANSETRON 2MG/ML, 2ML ONE (09:37)
[2020-02-04] MEDS ORDERED: GLYCOPYRROLATE 0.2MG/1ML, 5ML ONE (09:37)
[2020-02-04] MEDS ORDERED: SUCCINYLCHOLINE 20 MG/ML, 10ML ONE (09:37)
[2020-02-04] MEDS ORDERED: NEOSTIGMINE 1 MG/ML, 10ML ONE (09:37)
[2020-02-04] MEDS: ACETAMINOPHEN 325 MG TABLET PO PRN (13:12)
[2020-02-04] MEDS: IBUPROFEN 600 MG TABLET PO PRN (15:39)
[2020-02-04] MEDS: ENOXAPARIN 40 MG/0.4 ML SQ SCH (16:19)
[2020-02-04] MEDS: morphine SULFATE 10 MG/ML, 1ML IVPush PRN (21:35)
[2020-02-05 00:24] VITALS: BP 143/77
[2020-02-05] MEDS: IBUPROFEN 600 MG TABLET PO PRN (00:29)
[2020-02-05 07:21] VITALS: BP 135/75
[2020-02-05] MEDS: INSULIN LISPRO 100 UNITS/ML, PEN SQ-INSULIN SCH ×4 (08:04→20:01)
[2020-02-05] MEDS: CEFAZOLIN PMX 2GM/50ML 50 ML IVPB SCH ×2 (08:04→15:57)
[2020-02-05] MEDS: SODIUM CHLORIDE FLUSH 10ML SYR IVF SCH ×2 (08:05→20:02)
[2020-02-05] MEDS: INSULIN GLARGINE 100 UNITS/ML, PEN SQ-INSULIN SCH ×2 (09:15→20:01)
[2020-02-05] MEDS: ACETAMINOPHEN 325 MG TABLET PO PRN ×2 (11:22→17:46)
[2020-02-05] MEDS: morphine SULFATE 10 MG/ML, 1ML IVPush PRN ×2 (13:32→20:03)
[2020-02-05 14:17] VITALS: BP 136/72
[2020-02-05] MEDS: AMPICILLIN/SULBACTAM 3 GM in SODIUM CHLORIDE 0.9% 100 ML IV SCH ×2 (17:27→22:54)
[2020-02-05] MEDS: ENOXAPARIN 40 MG/0.4 ML SQ SCH (17:27)
[2020-02-05 20:06] VITALS: BP 155/82
[2020-02-06 00:21] VITALS: BP 160/84
[2020-02-06] MEDS: AMPICILLIN/SULBACTAM 3 GM in SODIUM CHLORIDE 0.9% 100 ML IV SCH ×4 (05:07→22:21)
[2020-02-06 05:29] LABS: MEAN CORPUSCULAR HEMOGLOBIN 28.7 pg (27.5-34.5); MEAN CORPUSCULAR HGB CONC 32.7 g/dL (33.2-36.2); MEAN PLATELET VOLUME 7.5 fL (7.4-10.4); PLATELET COUNT 569 x10^3/uL (130-400)
[2020-02-06 05:36] LABS: ANION GAP 7 mmol/L (5-15); CALCIUM 8.7 mg/dL (8.5-10.1); CHLORIDE 110 mmol/L (98-107); CREATININE 0.89 mg/dL (0.7-1.3)
[2020-02-06 06:12] LABS: MD YES
[2020-02-06 06:14] LABS: <PLATELET ESTIMATE> INCREASED; <PLT MORPHOLOGY> NORMAL PLT MORPH; ANISOCYTOSIS 1+; BAND#(MANUAL) 0.36 x10^3/uL; BANDS%(MANUAL) 3 % (0-7); EOS#(MANUAL) 0.12 x10^3/uL (0.0-0.4); EOS% (MANUAL) 1 % (1-7); LYMPHS% (MANUAL) 25 % (22-44); METAMYELOCYTES% (MANUAL) 5 % (0-1); MONOS#(MANUAL) 0.48 x10^3/uL (0.3-2.7); MONOS% (MANUAL) 4 % (2-9); POLYCHROMASIA 1+; SEG#(MANUAL) 7.44 x10^3/uL (1.8-6.8); SEGS% (MANUAL) 62 % (42-75)
[2020-02-06] MEDS: INSULIN LISPRO 100 UNITS/ML, PEN SQ-INSULIN SCH ×4 (07:50→20:23)
[2020-02-06] MEDS: SODIUM CHLORIDE FLUSH 10ML SYR IVF SCH ×2 (07:51→20:24)
[2020-02-06] MEDS: INSULIN GLARGINE 100 UNITS/ML, PEN SQ-INSULIN SCH ×2 (07:51→20:24)
[2020-02-06 08:13] VITALS: BP 149/79
[2020-02-06] MEDS: morphine SULFATE 10 MG/ML, 1ML IVPush PRN ×2 (10:41→17:50)
[2020-02-06 14:00] VITALS: BP 127/72
[2020-02-06] MEDS: ACETAMINOPHEN 325 MG TABLET PO PRN ×2 (14:41→21:53)
[2020-02-06] MEDS: ENOXAPARIN 40 MG/0.4 ML SQ SCH (16:08)
[2020-02-06 18:49] VITALS: BP 115/71
[2020-02-07 01:18] VITALS: BP 136/78
[2020-02-07] MEDS: AMPICILLIN/SULBACTAM 3 GM in SODIUM CHLORIDE 0.9% 100 ML IV SCH ×4 (04:20→22:13)
[2020-02-07 04:37] LABS: HCT (SEDRATE) 28.3 % (39.2-51.8)
[2020-02-07 04:39] LABS: BASOPHILS % (AUTO) 1 % (0-1); EOSINOPHILS % (AUTO) 1 % (1-7); LYMPHOCYTES % (AUTO) 19 % (22-44); MEAN CORPUSCULAR HEMOGLOBIN 28.5 pg (27.5-34.5); MEAN CORPUSCULAR HGB CONC 32.5 g/dL (33.2-36.2); MEAN PLATELET VOLUME 7.2 fL (7.4-10.4); MONOCYTES % (AUTO) 5 % (2-9); NEUTROPHILS % (AUTO) 73 % (42-75); PLATELET COUNT 605 x10^3/uL (130-400); RED BLOOD COUNT 3.31 x10^6/uL (4.38-5.82)
[2020-02-07 04:43] LABS: ALANINE AMINOTRANSFERASE 41 U/L (12-78); ALBUMIN 1.9 g/dL (3.4-5.0); ANION GAP 4 mmol/L (5-15); CALCIUM 8.5 mg/dL (8.5-10.1); CHLORIDE 104 mmol/L (98-107); CREATININE 0.84 mg/dL (0.7-1.3); MD NO
[2020-02-07 04:52] LABS: ALKALINE PHOSPHATASE 90 U/L (45-117); BILIRUBIN,TOTAL 0.2 mg/dL (0.2-1.0); C-REACTIVE PROTEIN, QUANT 6.93 mg/dL (0.02-0.49); TOTAL PROTEIN 7.2 g/dL (6.4-8.2)
[2020-02-07] MEDS: ACETAMINOPHEN 325 MG TABLET PO PRN ×2 (04:54→16:02)
[2020-02-07 06:01] LABS: SEDIMENTATION RATE > 120 mm/hr (0-10)
[2020-02-07 07:02] VITALS: BP 115/68
[2020-02-07] MEDS: morphine SULFATE 10 MG/ML, 1ML IVPush PRN (07:31)
[2020-02-07] MEDS: INSULIN LISPRO 100 UNITS/ML, PEN SQ-INSULIN SCH ×4 (07:31→20:34)
[2020-02-07] MEDS: INSULIN GLARGINE 100 UNITS/ML, PEN SQ-INSULIN SCH ×2 (07:32→20:34)
[2020-02-07] MEDS: SODIUM CHLORIDE FLUSH 10ML SYR IVF SCH ×2 (09:00→20:53)
[2020-02-07 12:19] VITALS: BP 123/71
[2020-02-07] MEDS: ENOXAPARIN 40 MG/0.4 ML SQ SCH (16:22)
[2020-02-07 19:33] VITALS: BP 142/81
[2020-02-08 01:36] VITALS: BP 127/70
[2020-02-08] MEDS: AMPICILLIN/SULBACTAM 3 GM in SODIUM CHLORIDE 0.9% 100 ML IV SCH ×3 (04:21→20:33)
[2020-02-08] MEDS: morphine SULFATE 10 MG/ML, 1ML IVPush PRN ×3 (04:26→19:32)
[2020-02-08] MEDS: INSULIN LISPRO 100 UNITS/ML, PEN SQ-INSULIN SCH ×4 (07:00→20:32)
[2020-02-08] MEDS: INSULIN GLARGINE 100 UNITS/ML, PEN SQ-INSULIN SCH ×2 (09:00→20:33)
[2020-02-08] MEDS: SODIUM CHLORIDE FLUSH 10ML SYR IVF SCH ×2 (09:00→20:35)
[2020-02-08 09:18] VITALS: BP 103/71
[2020-02-08] MEDS ORDERED: CHLORHEXIDINE 15 ML UDC ONE (10:56)
[2020-02-08] MEDS ORDERED: CHLORHEXIDINE 15 ML UDC MM ONE (11:00)
[2020-02-08] MEDS ORDERED: FENTANYL PF 250 MCG/5ML ONE (13:13)
[2020-02-08] MEDS ORDERED: LABETALOL 5MG/ML, 20ML IV PRN (13:30)
[2020-02-08] MEDS ORDERED: ONDANSETRON 2MG/ML, 2ML IVPush PRN (13:30)
[2020-02-08] MEDS ORDERED: FENTANYL PF 100 MCG/2ML IV PRN (13:30)
[2020-02-08] MEDS ORDERED: OXYcodone 5 MG/5 ML ORAL.SOL UDC PO PRN (13:30)
[2020-02-08] MEDS ORDERED: hydrALAzine 20 MG/ML, 1ML IV PRN (13:30)
[2020-02-08] MEDS ORDERED: HYDROmorphone 1 MG/ML, 1ML INJ IVPush PRN (13:30)
[2020-02-08 15:44] VITALS: BP 117/75
[2020-02-08 15:49] LABS: ANION GAP 4 mmol/L (5-15); CALCIUM 8.9 mg/dL (8.5-10.1); CHLORIDE 104 mmol/L (98-107)
[2020-02-08] MEDS: ENOXAPARIN 40 MG/0.4 ML SQ SCH (16:38)
[2020-02-08] MEDS: ACETAMINOPHEN 325 MG TABLET PO PRN (16:39)
[2020-02-08 18:53] VITALS: BP 108/66
[2020-02-09 01:36] VITALS: BP 118/67
[2020-02-09] MEDS: AMPICILLIN/SULBACTAM 3 GM in SODIUM CHLORIDE 0.9% 100 ML IV SCH ×4 (03:15→21:02)
[2020-02-09] MEDS: ACETAMINOPHEN 325 MG TABLET PO PRN ×3 (03:18→18:39)
[2020-02-09 03:32] LABS: BASOPHILS % (AUTO) 0 % (0-1); EOSINOPHILS % (AUTO) 1 % (1-7); LYMPHOCYTES % (AUTO) 14 % (22-44); MEAN CORPUSCULAR HEMOGLOBIN 28.4 pg (27.5-34.5); MEAN CORPUSCULAR HGB CONC 32.5 g/dL (33.2-36.2); MEAN PLATELET VOLUME 6.9 fL (7.4-10.4); MONOCYTES % (AUTO) 5 % (2-9); NEUTROPHILS % (AUTO) 80 % (42-75); PLATELET COUNT 600 x10^3/uL (130-400); RED BLOOD COUNT 3.26 x10^6/uL (4.38-5.82); RED CELL DISTRIBUTION WIDTH 15.4 % (9.4-14.8)
[2020-02-09 03:34] LABS: MD NO
[2020-02-09 03:39] LABS: ALANINE AMINOTRANSFERASE 27 U/L (12-78); ALBUMIN 2.1 g/dL (3.4-5.0); ANION GAP 5 mmol/L (5-15); CALCIUM 8.5 mg/dL (8.5-10.1); CHLORIDE 102 mmol/L (98-107); CREATININE 0.93 mg/dL (0.7-1.3)
[2020-02-09 03:42] LABS: ALKALINE PHOSPHATASE 87 U/L (45-117); BILIRUBIN,TOTAL 0.2 mg/dL (0.2-1.0); TOTAL PROTEIN 7.4 g/dL (6.4-8.2)
[2020-02-09 07:24] VITALS: BP 109/67
[2020-02-09] MEDS: morphine SULFATE 10 MG/ML, 1ML IVPush PRN ×3 (07:56→21:14)
[2020-02-09] MEDS: INSULIN GLARGINE 100 UNITS/ML, PEN SQ-INSULIN SCH ×2 (07:57→21:13)
[2020-02-09] MEDS: INSULIN LISPRO 100 UNITS/ML, PEN SQ-INSULIN SCH ×4 (07:58→21:13)
[2020-02-09] MEDS: SODIUM CHLORIDE FLUSH 10ML SYR IVF SCH ×2 (09:06→21:02)
[2020-02-09 12:49] VITALS: BP 106/66
[2020-02-09] MEDS ORDERED: ONDANSETRON 2MG/ML, 2ML ONE (13:12)
[2020-02-09] MEDS ORDERED: EPHEDRINE 50 MG/ML, 1ML ONE (13:12)
[2020-02-09] MEDS: ENOXAPARIN 40 MG/0.4 ML SQ SCH (16:56)
[2020-02-09 20:00] VITALS: BP 106/72
[2020-02-09 22:35] VITALS: BP 123/73
[2020-02-10 02:16] VITALS: BP 120/72
[2020-02-10] MEDS: AMPICILLIN/SULBACTAM 3 GM in SODIUM CHLORIDE 0.9% 100 ML IV SCH ×4 (03:15→23:14)
[2020-02-10 04:29] LABS: BASOPHILS % (AUTO) 1 % (0-1); EOSINOPHILS % (AUTO) 1 % (1-7); LYMPHOCYTES % (AUTO) 24 % (22-44); MEAN CORPUSCULAR HEMOGLOBIN 29.2 pg (27.5-34.5); MEAN CORPUSCULAR HGB CONC 33.1 g/dL (33.2-36.2); MEAN PLATELET VOLUME 6.8 fL (7.4-10.4); MONOCYTES % (AUTO) 7 % (2-9); NEUTROPHILS % (AUTO) 67 % (42-75); PLATELET COUNT 567 x10^3/uL (130-400); RED BLOOD COUNT 3.29 x10^6/uL (4.38-5.82); RED CELL DISTRIBUTION WIDTH 15.1 % (9.4-14.8)
[2020-02-10 04:46] LABS: ANION GAP 4 mmol/L (5-15); CALCIUM 8.9 mg/dL (8.5-10.1); CHLORIDE 104 mmol/L (98-107); CREATININE 0.93 mg/dL (0.7-1.3)
[2020-02-10 04:52] LABS: MD NO
[2020-02-10] MEDS: INSULIN LISPRO 100 UNITS/ML, PEN SQ-INSULIN SCH ×4 (07:00→20:17)
[2020-02-10] MEDS ORDERED: EPHEDRINE 50 MG/ML, 1ML IM PRN (07:30)
[2020-02-10] MEDS ORDERED: MEPERIDINE/PF 25MG/0.5ML IVPush PRN ×2 (07:30→09:00)
[2020-02-10] MEDS ORDERED: DIPHENHYDRAMINE 50 MG/ML, 1ML IVPush PRN (07:30)
[2020-02-10] MEDS ORDERED: HYDROmorphone 1 MG/ML, 1ML INJ IVPush PRN ×2 (07:30→09:00)
[2020-02-10] MEDS ORDERED: ACETAMINOPHEN 325 MG TABLET PO PRN ×2 (07:30→09:00)
[2020-02-10] MEDS ORDERED: HYDROcodone/APAP 7.5-325MG/15ML UDC PO PRN (07:30)
[2020-02-10] MEDS ORDERED: hydrALAzine 20 MG/ML, 1ML IV PRN ×2 (07:30→09:00)
[2020-02-10] MEDS ORDERED: ONDANSETRON 2MG/ML, 2ML IVPush PRN ×2 (07:30→09:00)
[2020-02-10] MEDS ORDERED: HALOPERIDOL 5 MG/ML IV PRN (07:30)
[2020-02-10] MEDS ORDERED: FENTANYL PF 100 MCG/2ML IV PRN ×2 (07:30→09:00)
[2020-02-10] MEDS ORDERED: METHOCARBAMOL 1,000 MG in DEXTROSE 5% 100 ML IV PRN (07:30)
[2020-02-10] MEDS ORDERED: LORazepam 2 MG/ML, 1ML IVPush PRN (07:30)
[2020-02-10] MEDS ORDERED: OXYcodone 5 MG/5 ML ORAL.SOL UDC PO PRN ×2 (07:30→09:00)
[2020-02-10] MEDS ORDERED: ALBUTEROL/IPRATROPIUM 2.5MG/0.5MG, 3 ML NPPB PRN (07:30)
[2020-02-10] MEDS ORDERED: MIDAZOLAM 1 MG/ML, 2ML IV PRN (07:30)
[2020-02-10] MEDS ORDERED: EPHEDRINE 50 MG/ML, 1ML IVPush PRN (07:30)
[2020-02-10] MEDS ORDERED: DIAZEPAM 5 MG/ML, 2ML IVPush PRN (07:30)
[2020-02-10] MEDS ORDERED: LABETALOL 5MG/ML, 20ML IV PRN ×2 (07:30→09:00)
[2020-02-10] MEDS ORDERED: METOCLOPRAMIDE 5 MG/ML, 2ML IVPush PRN (07:30)
[2020-02-10 08:04] VITALS: BP 129/74
[2020-02-10] MEDS ORDERED: MIDAZOLAM 1 MG/ML, 2ML ONE (08:15)
[2020-02-10] MEDS ORDERED: FENTANYL PF 250 MCG/5ML ONE (08:15)
[2020-02-10] MEDS ORDERED: CHLORHEXIDINE 15 ML UDC ONE (08:33)
[2020-02-10] MEDS ORDERED: CHLORHEXIDINE 15 ML UDC MM ONE (09:00)
[2020-02-10] MEDS ORDERED: morphine SULFATE 10 MG/ML, 1ML IVPush PRN (09:00)
[2020-02-10] MEDS ORDERED: PROPOFOL 10 MG/ML, 20ML ONE (09:18)
[2020-02-10] MEDS ORDERED: CEFAZOLIN 1,000 MG ONE (09:18)
[2020-02-10] MEDS: SODIUM CHLORIDE FLUSH 10ML SYR IVF SCH ×2 (10:58→20:00)
[2020-02-10] MEDS: morphine SULFATE 10 MG/ML, 1ML IVPush PRN ×2 (12:17→20:00)
[2020-02-10] MEDS: INSULIN GLARGINE 100 UNITS/ML, PEN SQ-INSULIN SCH ×2 (12:19→21:32)
[2020-02-10 13:30] VITALS: BP 114/71
[2020-02-10] MEDS: ENOXAPARIN 40 MG/0.4 ML SQ SCH (16:49)
[2020-02-10 19:09] VITALS: BP 109/66
[2020-02-11 00:49] VITALS: BP 111/69
[2020-02-11] MEDS: morphine SULFATE 10 MG/ML, 1ML IVPush PRN ×3 (05:51→20:38)
[2020-02-11] MEDS: AMPICILLIN/SULBACTAM 3 GM in SODIUM CHLORIDE 0.9% 100 ML IV SCH ×4 (06:15→23:16)
[2020-02-11 07:16] VITALS: BP 123/76
[2020-02-11] MEDS: INSULIN LISPRO 100 UNITS/ML, PEN SQ-INSULIN SCH ×4 (07:57→20:58)
[2020-02-11] MEDS: INSULIN GLARGINE 100 UNITS/ML, PEN SQ-INSULIN SCH ×2 (07:59→20:58)
[2020-02-11] MEDS: SODIUM CHLORIDE FLUSH 10ML SYR IVF SCH ×2 (08:00→20:41)
[2020-02-11 13:10] VITALS: BP 118/73
[2020-02-11] MEDS: ENOXAPARIN 40 MG/0.4 ML SQ SCH (17:21)
[2020-02-11 19:18] VITALS: BP 119/66
[2020-02-12] MEDS: morphine SULFATE 10 MG/ML, 1ML IVPush PRN ×5 (00:01→16:43)
[2020-02-12 00:02] VITALS: BP 109/67
[2020-02-12] MEDS: AMPICILLIN/SULBACTAM 3 GM in SODIUM CHLORIDE 0.9% 100 ML IV SCH ×4 (04:49→23:08)
[2020-02-12] MEDS: INSULIN LISPRO 100 UNITS/ML, PEN SQ-INSULIN SCH ×4 (07:00→20:13)
[2020-02-12] MEDS: metFORMIN 850 MG TABLET PO SCH ×2 (08:23→16:49)
[2020-02-12] MEDS: INSULIN GLARGINE 100 UNITS/ML, PEN SQ-INSULIN SCH ×2 (08:23→20:12)
[2020-02-12] MEDS: SODIUM CHLORIDE FLUSH 10ML SYR IVF SCH ×2 (08:24→20:13)
[2020-02-12 08:38] VITALS: BP 115/69
[2020-02-12 13:40] VITALS: BP 116/71
[2020-02-12] MEDS: ACETAMINOPHEN 325 MG TABLET PO PRN (14:48)
[2020-02-12] MEDS: ENOXAPARIN 40 MG/0.4 ML SQ SCH (16:16)
[2020-02-12 20:38] VITALS: BP 117/71
[2020-02-13 01:59] VITALS: BP 121/70
[2020-02-13] MEDS: AMPICILLIN/SULBACTAM 3 GM in SODIUM CHLORIDE 0.9% 100 ML IV SCH ×4 (05:15→22:55)
[2020-02-13] MEDS: morphine SULFATE 10 MG/ML, 1ML IVPush PRN ×4 (05:33→21:28)
[2020-02-13 05:56] LABS: BASOPHILS % (AUTO) 1 % (0-1); EOSINOPHILS % (AUTO) 4 % (1-7); LYMPHOCYTES % (AUTO) 27 % (22-44); MEAN CORPUSCULAR HEMOGLOBIN 28.6 pg (27.5-34.5); MEAN CORPUSCULAR HGB CONC 32.9 g/dL (33.2-36.2); MEAN PLATELET VOLUME 7.1 fL (7.4-10.4); MONOCYTES % (AUTO) 6 % (2-9); NEUTROPHILS % (AUTO) 63 % (42-75); PLATELET COUNT 532 x10^3/uL (130-400); RED BLOOD COUNT 3.38 x10^6/uL (4.38-5.82); RED CELL DISTRIBUTION WIDTH 14.9 % (9.4-14.8)
[2020-02-13 06:16] LABS: MD NO
[2020-02-13] MEDS: INSULIN LISPRO 100 UNITS/ML, PEN SQ-INSULIN SCH ×4 (07:00→22:57)
[2020-02-13] MEDS ORDERED: MIDAZOLAM 1 MG/ML, 2ML ONE (07:14)
[2020-02-13] MEDS ORDERED: FENTANYL PF 100 MCG/2ML ONE (07:17)
[2020-02-13] MEDS ORDERED: PROPOFOL 10 MG/ML, 20ML ONE (07:28)
[2020-02-13] MEDS ORDERED: FENTANYL PF 100 MCG/2ML IV PRN (08:00)
[2020-02-13] MEDS ORDERED: OXYcodone 5 MG/5 ML ORAL.SOL UDC PO PRN (08:00)
[2020-02-13] MEDS ORDERED: morphine SULFATE 10 MG/ML, 1ML IVPush PRN (08:00)
[2020-02-13] MEDS ORDERED: PROMETHAZINE 25 MG/ML, 1ML IVPush PRN (08:00)
[2020-02-13] MEDS ORDERED: MEPERIDINE/PF 25MG/0.5ML IVPush PRN (08:00)
[2020-02-13] MEDS ORDERED: ONDANSETRON 2MG/ML, 2ML IVPush PRN (08:00)
[2020-02-13] MEDS ORDERED: hydrALAzine 20 MG/ML, 1ML IV PRN (08:00)
[2020-02-13] MEDS ORDERED: ACETAMINOPHEN 325 MG TABLET PO PRN (08:00)
[2020-02-13] MEDS ORDERED: DIPHENHYDRAMINE 50 MG/ML, 1ML IVPush PRN (08:00)
[2020-02-13] MEDS ORDERED: LABETALOL 5MG/ML, 20ML IV PRN (08:00)
[2020-02-13] MEDS ORDERED: DIAZEPAM 5 MG/ML, 2ML IVPush PRN (08:00)
[2020-02-13] MEDS: SODIUM CHLORIDE FLUSH 10ML SYR IVF SCH ×2 (09:00→21:28)
[2020-02-13 09:19] VITALS: BP 144/77
[2020-02-13] MEDS: metFORMIN 850 MG TABLET PO SCH ×2 (09:35→16:13)
[2020-02-13] MEDS: INSULIN GLARGINE 100 UNITS/ML, PEN SQ-INSULIN SCH ×2 (10:13→22:56)
[2020-02-13 14:56] VITALS: BP 111/70
[2020-02-13] MEDS: ACETAMINOPHEN 325 MG TABLET PO PRN (15:06)
[2020-02-13] MEDS: ENOXAPARIN 40 MG/0.4 ML SQ SCH (16:14)
[2020-02-13 18:57] VITALS: BP 115/69
[2020-02-14 01:58] VITALS: BP 115/71
[2020-02-14] MEDS: morphine SULFATE 10 MG/ML, 1ML IVPush PRN ×3 (02:17→11:20)
[2020-02-14] MEDS: AMPICILLIN/SULBACTAM 3 GM in SODIUM CHLORIDE 0.9% 100 ML IV SCH ×4 (05:43→23:29)
[2020-02-14] MEDS: INSULIN LISPRO 100 UNITS/ML, PEN SQ-INSULIN SCH ×4 (08:20→21:53)
[2020-02-14] MEDS: SODIUM CHLORIDE FLUSH 10ML SYR IVF SCH ×2 (08:21→20:04)
[2020-02-14] MEDS: INSULIN GLARGINE 100 UNITS/ML, PEN SQ-INSULIN SCH ×2 (08:21→21:52)
[2020-02-14] MEDS: metFORMIN 850 MG TABLET PO SCH ×2 (08:21→16:11)
[2020-02-14 08:36] VITALS: BP 115/72
[2020-02-14 12:01] VITALS: BP 124/75
[2020-02-14] MEDS: ENOXAPARIN 40 MG/0.4 ML SQ SCH (16:20)
[2020-02-14 19:24] VITALS: BP 126/74
[2020-02-14] MEDS: HYDROcodone/APAP 5/325 TABLET PO PRN (20:04)
[2020-02-15 02:21] VITALS: BP 116/69
[2020-02-15] MEDS: AMPICILLIN/SULBACTAM 3 GM in SODIUM CHLORIDE 0.9% 100 ML IV SCH ×4 (05:22→23:12)
[2020-02-15] MEDS: HYDROcodone/APAP 5/325 TABLET PO PRN ×5 (06:12→23:58)
[2020-02-15 06:46] VITALS: BP 124/75
[2020-02-15] MEDS: INSULIN LISPRO 100 UNITS/ML, PEN SQ-INSULIN SCH ×4 (07:00→20:06)
[2020-02-15] MEDS: INSULIN GLARGINE 100 UNITS/ML, PEN SQ-INSULIN SCH ×2 (08:55→20:06)
[2020-02-15] MEDS: metFORMIN 850 MG TABLET PO SCH ×2 (08:55→16:46)
[2020-02-15] MEDS: SODIUM CHLORIDE FLUSH 10ML SYR IVF SCH ×2 (08:56→19:44)
[2020-02-15 13:13] VITALS: BP 114/71
[2020-02-15] MEDS: ENOXAPARIN 40 MG/0.4 ML SQ SCH (16:47)
[2020-02-15 19:15] VITALS: BP 126/72
[2020-02-16 00:32] VITALS: BP 113/66
[2020-02-16] MEDS: AMPICILLIN/SULBACTAM 3 GM in SODIUM CHLORIDE 0.9% 100 ML IV SCH ×4 (04:59→23:15)
[2020-02-16] MEDS: INSULIN LISPRO 100 UNITS/ML, PEN SQ-INSULIN SCH ×4 (07:00→22:09)
[2020-02-16 07:19] VITALS: BP 121/72
[2020-02-16] MEDS: HYDROcodone/APAP 5/325 TABLET PO PRN ×3 (07:58→20:30)
[2020-02-16] MEDS: metFORMIN 850 MG TABLET PO SCH (07:58)
[2020-02-16] MEDS: SODIUM CHLORIDE FLUSH 10ML SYR IVF SCH ×2 (07:59→22:09)
[2020-02-16] MEDS: INSULIN GLARGINE 100 UNITS/ML, PEN SQ-INSULIN SCH (10:00)
[2020-02-16 10:40] LABS: CREATININE 0.98 mg/dL (0.7-1.3)
[2020-02-16 13:52] VITALS: BP 109/71
[2020-02-16] MEDS: metFORMIN 500 MG TABLET PO SCH (17:03)
[2020-02-16] MEDS: ENOXAPARIN 40 MG/0.4 ML SQ SCH (17:04)
[2020-02-16 19:12] VITALS: BP 133/74
[2020-02-17 02:06] VITALS: BP 105/66
[2020-02-17] MEDS: AMPICILLIN/SULBACTAM 3 GM in SODIUM CHLORIDE 0.9% 100 ML IV SCH ×3 (05:16→16:48)
[2020-02-17] MEDS: HYDROcodone/APAP 5/325 TABLET PO PRN ×3 (05:16→19:50)
[2020-02-17 06:44] VITALS: BP 122/76
[2020-02-17] MEDS: INSULIN LISPRO 100 UNITS/ML, PEN SQ-INSULIN SCH ×4 (07:00→19:49)
[2020-02-17] MEDS: metFORMIN 500 MG TABLET PO SCH ×2 (07:48→16:48)
[2020-02-17] MEDS: SODIUM CHLORIDE FLUSH 10ML SYR IVF SCH ×2 (07:48→19:50)
[2020-02-17 14:14] VITALS: BP 111/72
[2020-02-17] MEDS: ENOXAPARIN 40 MG/0.4 ML SQ SCH (16:48)
[2020-02-17 18:49] VITALS: BP 122/74
[2020-02-18 00:11] VITALS: BP 144/84
[2020-02-18] MEDS: AMPICILLIN/SULBACTAM 3 GM in SODIUM CHLORIDE 0.9% 100 ML IV SCH ×3 (00:57→11:33)
[2020-02-18] MEDS: HYDROcodone/APAP 5/325 TABLET PO PRN (05:45)
[2020-02-18 06:41] VITALS: BP 117/70
[2020-02-18] MEDS: INSULIN LISPRO 100 UNITS/ML, PEN SQ-INSULIN SCH ×2 (07:00→11:02)
[2020-02-18] MEDS: metFORMIN 500 MG TABLET PO SCH (07:54)
[2020-02-18] MEDS: SODIUM CHLORIDE FLUSH 10ML SYR IVF SCH (07:55)
[2020-02-18] MEDS ORDERED: HYDR-3237 PO (10:46)
[2020-02-18] MEDS ORDERED: METF500T PO (10:46)
[2020-02-18] MEDS ORDERED: ENOX40SY4 SQ (10:46)
[2020-02-18] MEDS ORDERED: AMPI3VIA IV (10:46)
[2020-02-18 13:31] VITALS: BP 116/69
== END 2020-02-18 14:24 | DRG 853 ==
LOC: ED 12:19 → EDIP 13:42 → 5SO 18:23 → 3N 02-04 00:22
PROVIDERS: ADMIT Hospitalist; ATTEND Hospitalist
PROC: 0T9B70Z Drainage of Bladder with Drainage Device, Via Natural or Artificial Opening (ICD-10-PCS; 2020-01-29)
PROC: 0YBM0ZZ Excision of Right Foot, Open Approach (ICD-10-PCS; 2020-02-01)
PROC: 0Y9M0ZZ Drainage of Right Foot, Open Approach (ICD-10-PCS; 2020-02-01)
PROC: 0Y9H0ZZ Drainage of Right Lower Leg, Open Approach (ICD-10-PCS; principal; 2020-02-01 13:30)
PROC: 02HV33Z Insertion of Infusion Device into Superior Vena Cava, Percutaneous Approach (ICD-10-PCS; 2020-02-03)
PROC: B548ZZA Ultrasonography of Superior Vena Cava, Guidance (ICD-10-PCS; 2020-02-03)
PROC: 0Y9H0ZZ Drainage of Right Lower Leg, Open Approach (ICD-10-PCS; 2020-02-04)
PROC: 0Y9M0ZZ Drainage of Right Foot, Open Approach (ICD-10-PCS; 2020-02-04)
PROC: 0JBN0ZZ Excision of Right Lower Leg Subcutaneous Tissue and Fascia, Open Approach (ICD-10-PCS; 2020-02-08)
PROC: 0LBV0ZZ Excision of Right Foot Tendon, Open Approach (ICD-10-PCS; 2020-02-10)
PROC: 0JBN0ZZ Excision of Right Lower Leg Subcutaneous Tissue and Fascia, Open Approach (ICD-10-PCS; 2020-02-10)
PROC: 0JBN0ZZ Excision of Right Lower Leg Subcutaneous Tissue and Fascia, Open Approach (ICD-10-PCS; 2020-02-13)
DX: A41.9 Sepsis, unspecified organism (principal); E43 Unspecified severe protein-calorie malnutrition; M72.6 Necrotizing fasciitis; E87.1 Hypo-osmolality and hyponatremia; E87.2 Acidosis; L02.415 Cutaneous abscess of right lower limb; L03.115 Cellulitis of right lower limb; M86.9 Osteomyelitis, unspecified; N17.9 Acute kidney failure, unspecified; D63.8 Anemia in other chronic diseases classified elsewhere; E11.65 Type 2 diabetes mellitus with hyperglycemia; E11.621 Type 2 diabetes mellitus with foot ulcer; E11.69 Type 2 diabetes mellitus with other specified complication; E78.5 Hyperlipidemia, unspecified; F17.200 Nicotine dependence, unspecified, uncomplicated; L97.519 Non-pressure chronic ulcer of other part of right foot with unspecified severity; M62.461 Contracture of muscle, right lower leg; R65.20 Severe sepsis without septic shock; R26.2 Difficulty in walking, not elsewhere classified; M65.88 Other synovitis and tenosynovitis, other site; Z20.828 Contact with and (suspected) exposure to other viral communicable diseases; Z79.4 Long term (current) use of insulin; Z68.27 Body mass index [BMI] 27.0-27.9, adult
CPT/HCPCS: 36415; 36573; 71045; 80048; 80053; 81001; 82550; 82565; 82962; 83036; 83520; 83605; 83735; 84145; 84439; 84443; 84481; 84520; 85025; 85651; 86140; 87015; 87040; 87070; 87075; 87076; 87077; 87116; 87205; 87206; 87635; 88304; 93005; 96365; 96366; 96367; 96368; 96372; 99285; G0378; J0295; J0690; J0878; J1100; J1650; J2250; J2405; J2543; J2704; J2710; J3010; J3370; J3480; A9575; C1751; J0330; J1815; J2270; J7030; J7040; J7050; J7120